=== PATIENT | female | born 1970 | race Caucasian/White ===

== ENCOUNTER → 2019-07-31 10:23 | Outpatient (BNVA) | payer BC, SELFPAY | PROVIDERS: Family Provider Registered Nurse; PCP Registered Nurse; Visit Provider Urology | DX: N39.0 Urinary tract infection, site not specified (principal); N39.46 Mixed incontinence | CPT/HCPCS: 81001 ==

== ENCOUNTER → 2019-08-25 14:53 | Outpatient (BNVA) | payer BC, SELFPAY | PROVIDERS: Family Provider Registered Nurse; PCP Registered Nurse; Referring Provider Registered Nurse; Visit Provider Podiatrist Foot & Ankle Surgery | DX: S92.001A Unspecified fracture of right calcaneus, initial encounter for closed fracture (principal); X58.XXXA Exposure to other specified factors, initial encounter | CPT/HCPCS: 73650 ==

== ENCOUNTER 2019-08-25 16:50 | Outpatient (CLI) | payer BC, SELFPAY | END 2019-08-25 16:51 | disposition home or self-care (01) | LOC: SPT 16:50 | PROVIDERS: Family Provider Registered Nurse; PCP Registered Nurse; Visit Provider Podiatrist Foot & Ankle Surgery | DX: S92.014D Nondisplaced fracture of body of right calcaneus, subsequent encounter for fracture with routine healing (principal); X58.XXXD Exposure to other specified factors, subsequent encounter; Z46.89 Encounter for fitting and adjustment of other specified devices | CPT/HCPCS: L4361 ==

== ENCOUNTER → 2019-08-26 14:26 | Outpatient (BNVA) | payer BC, SELFPAY | PROVIDERS: Family Provider Registered Nurse; PCP Registered Nurse; Visit Provider Nurse Practitioner Psychiatric/Mental Health | DX: F31.63 Bipolar disorder, current episode mixed, severe, without psychotic features (principal); F43.12 Post-traumatic stress disorder, chronic; F15.21 Other stimulant dependence, in remission | CPT/HCPCS: 99214 ==

== ENCOUNTER 2019-09-04 07:51 | Outpatient (CLI) | payer BC, SELFPAY ==
--- NOTE | 2019-09-04 08:10 | MR_ITS ---
WS: [id number] MRI RIGHT FOOT NONCONTRAST TECHNIQUE: Axial T1, axial PD, axial T2, axial STIR, sagittal T1, sagittal STIR, coronal PD, and chelsi nal T2 fat sat. CLINICAL INFORMATION: UNSPECIFIED INJURY OF RIGHT FOOT COMPARISON: None. FINDINGS: Normal medial and lateral malleolus. Ankle mortise is normal in appearance. Normal talar dome. Normal deltoid ligament. Normal ATF. The tissue edema dorsal lower leg extending along the lateral foot and ankle. Small amount of tenosynovitis along the peroneal tendons. Talar dome is normal. No evidence of avascular necrosis. Normal talocalcaneal articulation. Tiny Achi lles enthesophyte. Tiny plantar calcaneal spur. Small amount of edema along the adjacent plantar apon eurosis. Normal TMT joints. Distal Achilles tendon is normal in appearance.Normal visualized extensor and flex or compartment tendons. Metatarsals are normal in appearance. Normal TMT joints. MR/MR foot RT wo con* [id number] IMPRESSION: 1. Normal ankle mortise. Normal medial and lateral malleolus. 2. Soft tissue edema involving the dorsal lower leg soft tissues extending maurisio ng the lateral ankle and foot. 3. Small amount of tenosynovitis along the peroneal tendons. 4. Talus is normal in appearance. Normal talar dome. 5. Small Achilles insertion enthesophyte and plantar calcaneal spur. Small morelia unt of edema along the adjacent plantar aponeurosis. 6. Normal metatarsals and TMT joints. 7. Distal Achilles is normal in appearance.
== END 2019-09-04 07:52 | disposition home or self-care (01) ==
LOC: RADWPI 08:01
PROVIDERS: Family Provider Registered Nurse; PCP Registered Nurse; Visit Provider Podiatrist Foot & Ankle Surgery
DX: M65.871 Other synovitis and tenosynovitis, right ankle and foot (principal); M77.31 Calcaneal spur, right foot; R60.9 Edema, unspecified
CPT/HCPCS: 73718

== ENCOUNTER → 2019-09-30 08:24 | Outpatient (BNVA) | payer BC, SELFPAY | PROVIDERS: Family Provider Registered Nurse; PCP Registered Nurse; Visit Provider Nurse Practitioner Psychiatric/Mental Health | DX: F31.63 Bipolar disorder, current episode mixed, severe, without psychotic features (principal); F43.12 Post-traumatic stress disorder, chronic; F15.21 Other stimulant dependence, in remission | CPT/HCPCS: 99214 ==

== ENCOUNTER → 2019-10-28 08:34 | Outpatient (BNVA) | payer BC, SELFPAY | PROVIDERS: Family Provider Registered Nurse; PCP Registered Nurse; Visit Provider Nurse Practitioner Psychiatric/Mental Health | DX: F31.63 Bipolar disorder, current episode mixed, severe, without psychotic features (principal); F43.12 Post-traumatic stress disorder, chronic; F15.21 Other stimulant dependence, in remission | CPT/HCPCS: 99213 ==

== ENCOUNTER 2019-11-21 22:26 | Emergency (ER) | payer BC, SELFPAY ==
[2019-11-21] VITALS (11 sets, daily range): BP systolic 116–120; BP diastolic 61–68; PULSE 67–76; RESP 0–26; TEMP 36.2; O2SAT 95–98; BMI 29.8
--- NOTE | 2019-11-21 22:28 | XRR_ITS ---
PROCEDURE INFORMATION: Exam: XR Chest, 1 View Exam date and time: 11/21/2019 10:29 PM Age: 49 years old Clinical indication: Left-sided chest pain; Patient HX: Ex smoker; Additional info: Cp TECHNIQUE: Imaging protocol: XR of the chest Views: 1 view. COMPARISON: CR Chest 1 [place] [id number] 03/30/2019 8:34 AM FINDINGS: Lungs: The lungs are clear bilaterally. Pulmonary vasculature within normal limits. Pleural space: No visible pneumothorax or pleural effusion. Heart/Mediastinum: Cardiomediastinal silhouette contour within normal limits. Bones/joints: No emergent findings identified. XR/XR chest 1V portable [id number] IMPRESSION: 1. No radiographic findings of acute cardiopulmonary disease.
--- NOTE | 2019-11-21 22:28 | ECG_ITS ---
Measurements Intervals [place] Rate: 63 P: 56 VT: 135 QRS: 37 QRSD: 92 T: 63 QT: 390 QTc: 401 SINUS RHYTHM Compared to ECG 03/30/2019 08:14:32 No significant changes Electronically Signed On 11-22-2019 18:19:35 CDT by Faiza Blood M.D. [email or web address]
--- NOTE | 2019-11-21 22:44 | W.ED.CHESTPA ---
HPI - Chest Pain General: Chief Complaint: Chest Pain Stated Complaint: chest pressure/face tingling Time Seen by Provider: 11/21/19 22:36 Source: patient Mode of arrival: ambulatory Limitations: no limitations History of Present Illness: HPI narrative: 49-year-old female who states she has been working outside all day and started having chest pain 45 minutes ago. She states it is a pressure type pain in the center of her chest and rates it a 2 out of 10 currently. She denies any worsening or improving factors. She denies any vomiting or diarrhea. She denies any shortness of breath at this time. She has no history of heart disease. complaint: chest pain Onset (ago): hour(s) Prior episodes: No Onset: during rest Pain location: substernal Pain radiation: none Severity: moderate Quality: tightness Relieving factors: nothing Exacerbating factors: nothing Associated symptoms: Deny abdominal pain, dyspnea, fever(s), nausea or vomiting Review of Systems Const: Denies: fever(s), chills, body aches or change in appetite Eyes: Denies: blurry vision or eye discomfort ENMT: Denies: throat pain or dental pain Card: Reports: chest pain Resp: Denies: dyspnea GI: Denies: abdominal pain, nausea, vomiting or diarrhea : Denies: dysuria Musc: Denies: neck pain or back pain Skin/Breast: Denies: rash Neuro: Denies: headache(s) Psych: Denies: depression Rolly/Lymph: Denies: easy bruising All/Imm: Denies: urticaria PFSH ED PFSH: Medical History Bipolar I disorder, most recent episode mixed, severe without psychotic features Chronic post-traumatic stress disorder History of cervical cancer Other stimulant dependence, in remission methamphetamines, in sustained remission Recurrent UTI Status post hysteroscopy Urinary incontinence, mixed Surgical History H/O dilation and curettage History of salpingectomy S/P section S/P tonsillectomy Family History Family/Other Cancer Psychiatric illness Bipolar CAD (coronary artery disease) Diabetes Social History Smoking and tobacco status: never smoked Alcohol intake: never Marital status: Current occupational status: employed History of recent travel: No Physical Exam Const: COMMON NORMALS: no acute distress, patient oriented x3 and healthy appearing HENMT: COMMON NORMALS: normocephalic and atraumatic HEAD & SCALP: normocephalic and atraumatic Eye: COMMON NORMALS: Equal, round and reactive pupils present and EOMs intact bilaterally PUPIL: Yes Equal, round and reactive pupils present Neck/C-Spine: COMMON NORMALS: full ROM and supple Chest: COMMONS NORMALS: normal inspection of the chest and normal palpation of entire chest wall Resp: COMMON NORMALS: normal respiratory effort, No retractions, No use of accessory muscles and clear to auscultation bilaterally AUSCULTATION: clear to auscultation bilaterally Cardio: COMMON NORMALS: regular rate, regular rhythm and No murmurs present (Cardio) RATE: regular rate RHYTHM: regular rhythm GI: COMMON NORMALS: Normal to inspection, nondistended, normoactive bowel sounds present, Soft to palpation, non-tender and no masses PALPATION: Yes Soft to palpation Extremity: COMMON NORMALS: normal to inspection and full ROM Neuro: COMMON NORMALS: patient oriented x3, moves all extremities and no focal motor deficits Psych: COMMON NORMALS: mental status grossly normal, Normal thought process present and cooperative THOUGHT PROCESS: Normal thought process present Skin: COMMON NORMALS: no rashes or lesions noted and no wounds GENERAL SKIN EXAM: no rashes or lesions noted Course Vital Signs: Vital signs: Vital Signs Temperature 97.2 F L 11/21/19 22:45 Pulse Rate 71 11/21/19 23:40 Respiratory Rate 19 H 11/21/19 23:40 Blood Pressure 120/68 11/21/19 23:40 Pulse Oximetry 96 11/21/19 23:40 MDM - Chest Pain MDM Narrative: Medical decision making narrative: Patient presents here with chest pain that is atypical in nature. She has been pain-free here in initial and repeat troponins are normal. Patient has no signs of acute coronary syndrome or pulmonary embolism. Patient is stable for discharge is to follow-up with primary care doctor in 2 to 4 days and return if worsening. Lab Data: Labs: Lab Results 06/05/20 06/05/20 06/05/20 Range/Units 22:45 22:45 22:45 WBC 8.7 (4.0-10.0) 10^3/ uL RBC 3.92 L (4.1-5.3) 10^6/u L Hgb 12.2 (11.5-15.3) g/dL Hct 37.5 (37.0-47.0) % MCV 95.7 (81-99) fL MCH 31.1 (28.0-34.0) pg MCHC 32.5 (30.0-36.0) g/dL RDW 12.2 (12.1-15.1) % Plt Count 288 (130-400) 10^3/c mm MPV 9.1 (7.4-10.4) fL Neut % (Auto) 53.2 % Lymph % (Auto) 33.2 % [place] % (Auto) 10.2 % Eos % (Auto) 2.3 % Baso % (Auto) 0.8 % Neut # (Auto) 4.6 (1.8-7.7) 10^3/u L Lymph # (Auto) 2.9 (0.8-4.8) 10^3/u L [place] # (Auto) 0.9 (0.2-0.9) 10^3/u L Eos # (Auto) 0.2 (0.0-0.8) 10^3/u L Baso # (Auto) 0.1 (0.0-0.1) 10^3/u L Nucleated RBC % (a uto) 0 % Nucleated RBCs # 0.0 /100WBC Sodium 141 (136-145) mmol/L Potassium 3.9 (3.5-5.1) mmol/L Chloride 103 (98-107) mmol/L Carbon Dioxide 28 (22-29) mmol/L Anion Gap 13.9 (5-19) BUN 20 (6-20) mg/dL Creatinine 0.8 (0.5-0.9) mg/dL GFR Calculation 76.6 L (90-130) mL/min Glucose 94 (65-115) mg/dL Calculated Osmolal ity 288 (285-295) mOsm/k g Calcium 9.9 (8.5-10.5) mg/dL Total Bilirubin 0.2 (0.15-1.2) mg/dL AST 11 (0-32) U/L ALT 10 (0-33) U/L Alkaline Phosphata se 33 L (35-105) IU/L Troponin T Baselin e 6 (0-10) ng/L Troponin T 120 Min [place] (0-10) ng/L Total Protein 6.3 L (6.6-8.7) g/dL Albumin 3.9 (3.5-5.2) g/dL Globulin 2.4 (1.3-4.6) g/dL 11/22/19 Range/Units 00:42 WBC (4.0-10.0) 10^3/ uL RBC (4.1-5.3) 10^6/u L Hgb (11.5-15.3) g/dL Hct (37.0-47.0) % MCV (81-99) fL MCH (28.0-34.0) pg MCHC (30.0-36.0) g/dL RDW (12.1-15.1) % Plt Count (130-400) 10^3/c mm MPV (7.4-10.4) fL Neut % (Auto) % Lymph % (Auto) % [place] % (Auto) % Eos % (Auto) % Baso % (Auto) % Neut # (Auto) (1.8-7.7) 10^3/u L Lymph # (Auto) (0.8-4.8) 10^3/u L [place] # (Auto) (0.2-0.9) 10^3/u L Eos # (Auto) (0.0-0.8) 10^3/u L Baso # (Auto) (0.0-0.1) 10^3/u L Nucleated RBC % (a uto) % Nucleated RBCs # /100WBC Sodium (136-145) mmol/L Potassium (3.5-5.1) mmol/L Chloride (98-107) mmol/L Carbon Dioxide (22-29) mmol/L Anion Gap (5-19) BUN (6-20) mg/dL Creatinine (0.5-0.9) mg/dL GFR Calculation (90-130) mL/min Glucose (65-115) mg/dL Calculated Osmolal ity (285-295) mOsm/k g Calcium (8.5-10.5) mg/dL Total Bilirubin (0.15-1.2) mg/dL AST (0-32) U/L ALT (0-33) U/L Alkaline Phosphata se (35-105) IU/L Troponin T Baselin e (0-10) ng/L Troponin T 120 Min [place] 6.00 (0-10) ng/L Total Protein (6.6-8.7) g/dL Albumin (3.5-5.2) g/dL Globulin (1.3-4.6) g/dL Imaging Data^: CXR: Radiologist's impression: [place] [address] XRay Report Signed Patient: June Blackwell Unit #: [id number] : 1970 Age/Sex: 49 / F ADM Date: 11/21/19 Loc: ER Room/Bed: Attending Dr: Ordering Provider/Ordering MD: Roxann Cason MD Date of Service: 11/21/19 Procedure(s): XR chest 1V portable [id number] Accession Number(s): [id number] Report Number: [id number] PROCEDURE INFORMATION: Exam: XR Chest, 1 View Exam date and time: 11/21/2019 10:29 PM Age: 49 years old Clinical indication: Left-sided chest pain; Patient HX: Ex smoker; Additional info: Cp TECHNIQUE: Imaging protocol: XR of the chest Views: 1 view. COMPARISON: CR Chest 1 [place] [id number] 03/30/2019 8:34 AM FINDINGS: Lungs: The lungs are clear bilaterally. Pulmonary vasculature within normal limits. Pleural space: No visible pneumothorax or pleural effusion. Heart/Mediastinum: Cardiomediastinal silhouette contour within normal limits. Bones/joints: No emergent findings identified. XR/XR chest 1V portable [id number] IMPRESSION: 1. No radiographic findings of acute cardiopulmonary disease. EKG Data^: EKG 1: Attestation: I personally reviewed and interpreted this EKG as follows: EKG interpretation date: 11/21/19 EKG interpretation time: 22:51 Interpretation: nsr hr [address] or t wave abnormalities qrs 92 qtc 397 EKG 2: Attestation: I personally reviewed and interpreted this EKG as follows: EKG interpretation date: 11/22/19 EKG interpretation time: 01:25 Interpretation: Normal sinus rhythm heart rate [address] or T wave abnormalities QRS 99 QTc 413 Discharge Plan Discharge Patient Disposition: Home, Self-Care Clinical Impression: Chest pain Qualifiers: Chest pain type: other chest pain Qualified Code(s): R07.89 - Other chest pain Condition: Stable Prescriptions: No Action Zyrtec 10 mg capsule 10 mg PO DAILY RF: 0 levofloxacin 500 mg tablet 500 mg PO DAILY Qty: 14 RF: 2 diphenhydramine HCl [Benadryl] 25 mg capsule 75 mg PO .QHS PRNRF: 0 omeprazole 20 mg tablet,delayed release (DR/EC) 20 mg PO BID RF: 0 (DME) [place] Qty: 1 RF: 0 montelukast [Singulair] 10 mg tablet 10 mg PO .QHS RF: 0 aripiprazole [Abilify] 15 mg tablet 15 mg PO .bedtime Qty: 30 RF: 3 bupropion HCl [Wellbutrin XL] 150 mg tablet extended release 24 hr 150 mg PO QAM Qty: 30 RF: 4 bupropion HCl [Wellbutrin XL] 300 mg tablet extended release 24 hr 300 mg PO QAM Qty: 30 RF: 4 lamotrigine [Lamictal] 200 mg tablet 200 mg PO BID Qty: 60 RF: 4 trazodone 100 mg tablet 200 mg PO .QHS PRN (Reason: sleep) Qty: 60 RF: 4 Discharge Orders: Discharge Order (Routine); Ordered 11/22/19 Ordered By: Roxann Cason Referrals: Sonia Kraus FNP [Primary Care Provider] - 1-3 days Discharge Diet: Advance as tolerated Discharge Activity: Resume usual activity Patient Instructions: Chest Pain (ED) Coding Level of Care Code ED Change Management Coordinator for [facility] Fwd Exam Comprehensive
[2019-11-21 22:49] LABS: Basophils # 0.1 10^3/uL (0.0-0.1); Basophils % 0.8 %; Eosinophils # 0.2 10^3/uL (0.0-0.8); Eosinophils % 2.3 %; Hematocrit 37.5 % (37.0-47.0); Hemoglobin 12.2 g/dL (11.5-15.3); Lymphocytes # 2.9 10^3/uL (0.8-4.8); Lymphocytes % 33.2 %; Mean Corpuscular HGB Conc 32.5 g/dL (30.0-36.0); Mean Corpuscular Hemoglobin 31.1 pg (28.0-34.0); Mean Corpuscular Volume 95.7 fL (81-99); Mean Platelet Volume 9.1 fL (7.4-10.4); Monocytes # 0.9 10^3/uL (0.2-0.9); Monocytes % 10.2 %; Neutrophils # 4.6 10^3/uL (1.8-7.7); Neutrophils % 53.2 %; Nucleated Red Blood Cells % 0 %; Platelet Count 288 10^3/cmm (130-400); Red Blood Count 3.92 10^6/uL (4.1-5.3); Red Cell Distribution Width 12.2 % (12.1-15.1); White Blood Count 8.7 10^3/uL (4.0-10.0)
[2019-11-21] MEDS: aspirin 81 mg Chew Tablet 324 MG PO (22:59)
[2019-11-21] MEDS: morphine 4 mg/mL SDV 1 mL IVP (22:59)
[2019-11-21 23:12] LABS: Alanine Aminotransferase 10 U/L (0-33); Albumin Level 3.9 g/dL (3.5-5.2); Alkaline Phosphatase 33 IU/L (35-105); Anion Gap 13.9 (5-19); Aspartate Amino Transferase 11 U/L (0-32); Blood Urea Nitrogen 20 mg/dL (6-20); Calcium 9.9 mg/dL (8.5-10.5); Carbon Dioxide 28 mmol/L (22-29); Chloride 103 mmol/L (98-107); Globulin 2.4 g/dL (1.3-4.6); Glomerular Filtration Rate 76.6 mL/min (90-130); Glucose 94 mg/dL (65-115); Osmolality Calculated 288 mOsm/kg (285-295); Potassium 3.9 mmol/L (3.5-5.1); Sodium 141 mmol/L (136-145); Total Bilirubin 0.2 mg/dL (0.15-1.2); Total Protein 6.3 g/dL (6.6-8.7)
[2019-11-21 23:14] LABS: Troponin(5th) Baseline 6 ng/L (0-10)
[2019-11-22] VITALS (20 sets, daily range): BP systolic 109–133; BP diastolic 56–67; PULSE 68–84; RESP 13–22; O2SAT 92–96
[2019-11-22 01:02] LABS: Troponin 5 2HR Delta 0 ABS# (0-10)
== END 2019-11-22 01:41 | disposition home or self-care (01) ==
PROVIDERS: Emergency Provider Emergency Medicine; PCP Registered Nurse
DX: R07.89 Other chest pain (principal); Z85.41 Personal history of malignant neoplasm of cervix uteri
CPT/HCPCS: 12345; 71045; 80053; 84484; 85025; 93005; 96374; 99283; 99284; J2270

== ENCOUNTER → 2020-01-05 07:41 | Outpatient (BNVA) | payer BC, SELFPAY | PROVIDERS: PCP Registered Nurse; Visit Provider Nurse Practitioner Psychiatric/Mental Health | DX: F31.63 Bipolar disorder, current episode mixed, severe, without psychotic features (principal); F43.12 Post-traumatic stress disorder, chronic; F15.21 Other stimulant dependence, in remission; F50.81 Binge eating disorder; F90.2 Attention-deficit hyperactivity disorder, combined type | CPT/HCPCS: 99213 ==

== ENCOUNTER 2020-02-09 08:56 | Outpatient (CLI) | payer BC, SELFPAY ==
--- NOTE | 2020-02-09 09:03 | MM_ITS ---
WS: [id number] DIAGNOSTIC BILATERAL DIGITAL MAMMOGRAM WITH CAD BILATERAL BREAST ULTRASOUND COMPLETE HISTORY: PAIN OF BOTH BREASTS COMPARISON: 08/20/2018 TECHNIQUE: Bilateral craniocaudad, mediolateral oblique, and mediolateral views are submitted. Comput er aided detection utilized. Breast composition: The breasts are heterogeneously dense, which may obscure small masses. Stable par enchymal pattern. No masses or distortion. No increased trabeculation or skin thickening. No nipple r etraction. Bilateral breast ultrasound, complete. Bilateral breast ultrasound is positive for multiple benign-appearing hypoechoic masses and cysts. T here is no shadowing or dominant suspicious mass. There are mildly prominent ducts bilaterally. There is no focal area that corresponds to focal pain or discomfort. No distortion or shadowing. These fin dings are most consistent with fibrocystic breast disease. MM/[place] [id number] IMPRESSION: BI-RADS: 2-Benign FOLLOW UP: 1 Year Follow-up No mammographic or ultrasound abnormality is identified. No additional follow-u p is necessary unless the patient or care provider can localize a discrete palp able nodule or mass.
== END 2020-02-09 08:57 | disposition home or self-care (01) ==
LOC: RADSHAW 08:59
PROVIDERS: PCP Registered Nurse; Visit Provider Registered Nurse
DX: N64.4 Mastodynia (principal)
CPT/HCPCS: 76641; 77066

== ENCOUNTER → 2020-04-03 15:12 | Outpatient (BNVA) | payer BC, SELFPAY | PROVIDERS: PCP Registered Nurse; Visit Provider Nurse Practitioner Family | DX: N39.0 Urinary tract infection, site not specified (principal); Z11.3 Encounter for screening for infections with a predominantly sexual mode of transmission | CPT/HCPCS: 87491; 87591; 87661 ==

== ENCOUNTER → 2020-04-28 07:35 | Outpatient (BNVA) | payer BC, SELFPAY | PROVIDERS: PCP Registered Nurse; Visit Provider Nurse Practitioner Psychiatric/Mental Health | DX: F31.63 Bipolar disorder, current episode mixed, severe, without psychotic features (principal); F43.12 Post-traumatic stress disorder, chronic; F15.21 Other stimulant dependence, in remission; F50.81 Binge eating disorder; Z79.899 Other long term (current) drug therapy | CPT/HCPCS: 99214 ==

== ENCOUNTER → 2020-08-05 07:39 | Outpatient (BNVA) | payer BC, SELFPAY | PROVIDERS: PCP Registered Nurse; Visit Provider Nurse Practitioner Psychiatric/Mental Health | DX: F31.63 Bipolar disorder, current episode mixed, severe, without psychotic features (principal); F43.12 Post-traumatic stress disorder, chronic; F15.21 Other stimulant dependence, in remission; F50.81 Binge eating disorder | CPT/HCPCS: 99214 ==

== ENCOUNTER → 2020-09-08 07:34 | Outpatient (BNVA) | payer BC, SELFPAY | PROVIDERS: PCP Registered Nurse; Visit Provider Nurse Practitioner Psychiatric/Mental Health | DX: F31.63 Bipolar disorder, current episode mixed, severe, without psychotic features (principal); F43.12 Post-traumatic stress disorder, chronic; F15.21 Other stimulant dependence, in remission; F50.81 Binge eating disorder; Z79.899 Other long term (current) drug therapy | CPT/HCPCS: 99214 ==

== ENCOUNTER → 2020-09-10 08:39 | Outpatient (BNVA) | payer BC, SELFPAY | PROVIDERS: PCP Registered Nurse; Visit Provider Nurse Practitioner Psychiatric/Mental Health | DX: Z79.899 Other long term (current) drug therapy (principal) | CPT/HCPCS: 80053; 80061; 83036; 84443 ==

== ENCOUNTER → 2020-09-18 10:29 | Outpatient (BNVA) | payer BC, SELFPAY | PROVIDERS: PCP Registered Nurse; Visit Provider Nurse Practitioner Family | DX: N39.0 Urinary tract infection, site not specified (principal); B37.3 Candidiasis of vulva and vagina | CPT/HCPCS: 81000; 87086 ==

== ENCOUNTER → 2020-10-01 08:15 | Outpatient (BNVA) | payer BC, SELFPAY | PROVIDERS: PCP Registered Nurse; Visit Provider Nurse Practitioner Psychiatric/Mental Health | DX: F31.63 Bipolar disorder, current episode mixed, severe, without psychotic features (principal); F43.12 Post-traumatic stress disorder, chronic; F15.21 Other stimulant dependence, in remission; F50.81 Binge eating disorder; Z79.899 Other long term (current) drug therapy | CPT/HCPCS: 99214 ==

== ENCOUNTER → 2020-10-18 11:20 | Outpatient (BNVA) | payer BC, SELFPAY | PROVIDERS: PCP Registered Nurse; Visit Provider Nurse Practitioner Family | DX: J06.9 Acute upper respiratory infection, unspecified (principal); Z20.822 Contact with and (suspected) exposure to COVID-19 | CPT/HCPCS: 87071; 87426; 87880 ==

== ENCOUNTER → 2021-01-25 11:25 | Outpatient (BNVA) | payer BC, SELFPAY | PROVIDERS: PCP Registered Nurse; Visit Provider Registered Nurse Neonatal Intensive Care | DX: N39.0 Urinary tract infection, site not specified (principal) | CPT/HCPCS: 81000 ==

== ENCOUNTER 2021-02-02 19:38 | Emergency (ER) | payer SELFPAY ==
[2021-02-02 19:58] VITALS: BP 124/74; PULSE 71; RESP 16; TEMP 36.7; O2SAT 97; BMI 32.3
--- NOTE | 2021-02-02 22:17 | ED_ITS ---
HPI - Nausea/Vomiting/Diarrhea General: Chief complaint: Nausea/Vomiting/Diarrhea Stated complaint: Vomiting Nausea\PT thinks food Poison Time Seen by Provider: 02/02/21 22:13 History of Present Illness: HPI Narrative: 50-year-old female comes in today with complaints of nausea and vomiting and diarrhea starting this afternoon after eating [employer]. Patient reports that at about 11:00 she had eaten at [employer] fried chicken by 6:00 this evening she started having nausea and vomiting followed by diarrhea. Patient reports vomiting had ceased prior to arrival to the ER but she continues to have diarrhea. Patient appears mildly unwell and not toxic. Patient does report some mild cramping in the abdomen. Associated nausea: Yes Associated symtoms: Reports nausea Review of Systems General: Reports: 10 or more systems reviewed and unremarkable except in HPI and below GI: Reports: nausea, vomiting and diarrhea PFS ED PFSH: Medical History (Updated 02/02/21 @ 23:12 by NEDA Diana) Binge eating disorder Bipolar I disorder, most recent episode mixed, severe without psychotic features Chronic post-traumatic stress disorder History of cervical cancer Other stimulant dependence, in remission methamphetamines, in sustained remission Recurrent UTI Status post hysteroscopy Urinary incontinence, mixed Surgical History H/O dilation and curettage History of salpingectomy S/P section S/P tonsillectomy Family History Family/Other Cancer Psychiatric illness Bipolar CAD (coronary artery disease) Diabetes Social History Smoking and tobacco status: former smoker Alcohol intake: never Marital status: Current occupational status: employed History of recent travel: No Physical Exam Const: COMMON NORMALS: no acute distress and patient oriented x3 GENERAL APPEARANCE: cooperative HENMT: COMMON NORMALS: normocephalic and Normal external nose present HEAD & SCALP: normal to inspection and normocephalic NOSE: Normal external nose present MOUTH: Normal oral and palatal mucosa present Eye: GENERAL EYE: appearance normal, both eyes and all related structures Neck/C-Spine: COMMON NORMALS: full ROM Lymph: LYMPHATIC: no lymphadenopathy noted Chest: COMMONS NORMALS: normal inspection of the chest Resp: COMMON NORMALS: normal respiratory effort EFFORT & INSPECTION: Yes able to speak in complete sentences Cardio: COMMON NORMALS: regular rate and regular rhythm RATE: regular rate RHYTHM: regular rhythm GI: COMMON NORMALS: non-tender AUSCULTATION: Yes Hyperactive bowel sounds present : COMMON NORMALS: Yes no CVA tenderness BLADDER/KIDNEY EXAM: Yes no CVA tenderness Back/Pelvis: COMMON NORMALS: no CVA tenderness and thoracic and lumbar spine normal to inspection Extremity: COMMON NORMALS: normal to inspection Neuro: COMMON NORMALS: patient oriented x3 and moves all extremities Psych: COMMON NORMALS: mental status grossly normal and cooperative Skin: COMMON NORMALS: no rashes or lesions noted GENERAL SKIN EXAM: no rashes or lesions noted Course Vital Signs: Vital signs: Vital Signs Temperature 98.1 F 02/02/21 19:58 Pulse Rate 71 02/02/21 19:58 Respiratory Rate 16 02/02/21 19:58 Blood Pressure 124/74 02/02/21 19:58 Pulse Oximetry 97 02/02/21 19:58 MDM - Nausea/Vomiting/Diarrhea MDM Narrative: Medical decision making narrative: 50-year-old female comes in today with complaints of nausea vomiting and diarrhea starting this evening after eating [place] fried chicken. On exam abdomen soft nontender. Bowel sounds are hyperactive. Vital signs are normal. Differential diagnosis includes viral syndrome, gastroenteritis, food poisoning. Laboratory values were unremarkable. Patient was given a dose of Zofran and 1 L of IV fluids for symptoms. Patient had improvement in symptoms. Recommended light diet increase as tolerated. Off work tomorrow. Follow-up as needed. Return to the ER for worsening symptoms. Patient reported understanding of care plan and need for follow-up or return to the ER. Lab Data: Labs: Lab Results 02/02/21 02/02/21 Range/Units 22:40 22:40 WBC 7.0 (4.0-10.0) 10^3/ uL RBC 4.13 (4.1-5.3) 10^6/u L Hgb 13.0 (11.5-15.3) g/dL Hct 40.2 (37.0-47.0) % MCV 97.3 (81-99) fl MCH 31.5 (28.0-34.0) pg MCHC 32.3 (30.0-36.0) g/dL RDW 12.2 (12.1-15.1) % Plt Count 340 (130-400) 10^3/c mm MPV 8.9 (7.4-10.4) fL Neut % (Auto) 63.1 % Lymph % (Auto) 27.9 % [place] % (Auto) 7.2 % Eos % (Auto) 0.9 % Baso % (Auto) 0.6 % Neut # (Auto) 4.39 (1.8-7.7) 10^3/u L Lymph # (Auto) 1.9 (0.8-4.8) 10^3/u L [place] # (Auto) 0.5 (0.2-0.9) 10^3/u L Eos # (Auto) 0.1 (0.0-0.8) 10^3/u L Baso # (Auto) 0.0 (0.0-0.1) 10^3/u L Nucleated RBC % (a uto) 0 % Nucleated RBCs # 0.0 /100WBC Sodium 137 (136-145) mmol/L Potassium 3.7 (3.5-5.1) mmol/L Chloride 98 (98-107) mmol/L Carbon Dioxide 27 (22-29) mmol/L Anion Gap 15.7 (5-19) BUN 17 (6-20) mg/dL Creatinine 0.8 (0.5-0.9) mg/dL GFR Calculation 76.2 L (90-130) mL/min Glucose 95 (65-115) mg/dL Calculated Osmolal ity 285 (285-295) mOsm/k g Calcium 8.7 (8.5-10.5) mg/dL Total Bilirubin 0.2 (0.15-1.2) mg/dL AST 8 (0-32) U/L ALT 9 (0-33) U/L Alkaline Phosphata se 57 (35-105) IU/L Total Protein 7.1 (6.6-8.7) g/dL Albumin 3.9 (3.5-5.2) g/dL Globulin 3.2 (1.3-4.6) g/dL Lipase 19 (13-60) U/L Discharge Plan Discharge Patient Disposition: Home Clinical Impression: Food poisoning Condition: Stable Prescriptions: New ondansetron 4 mg tablet,disintegrating 4 mg PO Q8H PRN (Reason: nausea and vomiting) Qty: 7 RF: 0 No Action Zyrtec 10 mg capsule 10 mg PO DAILY RF: 0 lamotrigine [Lamictal] 200 mg tablet 200 mg PO BID Qty: 60 RF: 6 trazodone 100 mg tablet 200 mg PO .QHS PRN (Reason: sleep) Qty: 60 RF: 6 bupropion HCl [Wellbutrin XL] 150 mg tablet extended release 24 hr 150 mg PO QAM Qty: 30 RF: 6 bupropion HCl [Wellbutrin XL] 300 mg tablet extended release 24 hr 300 mg PO QAM Qty: 30 RF: 6 aripiprazole [Abilify] 15 mg tablet 15 mg PO .bedtime Qty: 30 RF: 6 diphenhydramine HCl [Benadryl] 25 mg capsule 75 mg PO .QHS PRNRF: 0 omeprazole 20 mg tablet,delayed release (DR/EC) 20 mg PO BID RF: 0 potassium chloride 10 mEq tablet extended release 10 meq PO DAILY RF: 0 furosemide [Lasix] 20 mg tablet 20 mg PO DAILY RF: 0 nitrofurantoin monohyd/m-cryst [Macrobid] 100 mg capsule 100 mg PO Q12H 5 Days Qty: 10 RF: 0 Discharge Orders: Discharge ED (Routine); Ordered 02/02/21 Ordered By: Ryan Goodson Discharge Diet: Usual diet Discharge Activity: Increase activity as tolerated Patient Instructions: Gastroenteritis (ED), Opioid Safety Activity Restrictions/Additional Instructions: Drink plenty of fluids. Use a ondansetron as needed for nausea. You may use [id number] Imodium for diarrhea. Most food poisoning incidents will resolve within 24 to 48 hours. Monitor for worsening symptoms such as high fever, blood in vomit or stool. If you notice any of these symptoms return to the ER for further evaluation and treatment. Follow-up with primary care as needed. Stand Alone Forms: Work/School Release Coding Level of Care Code ED Government Relations Analyst for [facility] Fwdenita Exam Comprehensive
[2021-02-02 22:51] LABS: Basophils % 0.6 %; Eosinophils # 0.1 10^3/uL (0.0-0.8); Eosinophils % 0.9 %; Hematocrit 40.2 % (37.0-47.0); Lymphocytes # 1.9 10^3/uL (0.8-4.8); Lymphocytes % 27.9 %; Mean Corpuscular HGB Conc 32.3 g/dL (30.0-36.0); Mean Corpuscular Hemoglobin 31.5 pg (28.0-34.0); Mean Corpuscular Volume 97.3 fl (81-99); Mean Platelet Volume 8.9 fL (7.4-10.4); Monocytes # 0.5 10^3/uL (0.2-0.9); Monocytes % 7.2 %; Neutrophils # 4.39 10^3/uL (1.8-7.7); Neutrophils % 63.1 %; Nucleated Red Blood Cells % 0 %; Platelet Count 340 10^3/cmm (130-400); Red Blood Count 4.13 10^6/uL (4.1-5.3); Red Cell Distribution Width 12.2 % (12.1-15.1)
[2021-02-02] MEDS: ondansetron 2 mg/ML SDV 2 mL 4 MG IVP (22:55)
[2021-02-02] MEDS: sodium chloride 0.9% 1,000 ML 999 ML IV (22:55)
[2021-02-02 23:08] LABS: Alanine Aminotransferase 9 U/L (0-33); Albumin Level 3.9 g/dL (3.5-5.2); Alkaline Phosphatase 57 IU/L (35-105); Anion Gap 15.7 (5-19); Aspartate Amino Transferase 8 U/L (0-32); Blood Urea Nitrogen 17 mg/dL (6-20); Calcium 8.7 mg/dL (8.5-10.5); Carbon Dioxide 27 mmol/L (22-29); Chloride 98 mmol/L (98-107); Globulin 3.2 g/dL (1.3-4.6); Glomerular Filtration Rate 76.2 mL/min (90-130); Glucose 95 mg/dL (65-115); Lipase 19 U/L (13-60); Osmolality Calculated 285 mOsm/kg (285-295); Potassium 3.7 mmol/L (3.5-5.1); Sodium 137 mmol/L (136-145); Total Bilirubin 0.2 mg/dL (0.15-1.2); Total Protein 7.1 g/dL (6.6-8.7)
[2021-02-02 23:29] VITALS: BP 105/62; PULSE 72; RESP 16; O2SAT 98
== END 2021-02-02 23:31 | disposition home or self-care (01) ==
PROVIDERS: Emergency Medicine; Emergency Provider Nurse Practitioner Family
DX: A05.9 Bacterial foodborne intoxication, unspecified (principal); Z85.41 Personal history of malignant neoplasm of cervix uteri; Z87.891 Personal history of nicotine dependence
CPT/HCPCS: 80053; 83690; 85025; 96361; 96374; 99283; J2405; J7030

== ENCOUNTER → 2021-05-04 10:28 | Outpatient (BNVA) | payer BC, SELFPAY | PROVIDERS: PCP Registered Nurse; Visit Provider Registered Nurse Neonatal Intensive Care | DX: N39.0 Urinary tract infection, site not specified (principal) | CPT/HCPCS: 81000 ==

== ENCOUNTER → 2021-05-26 15:34 | Outpatient (BNVA) | payer BC, SELFPAY | PROVIDERS: PCP Registered Nurse; Visit Provider Registered Nurse Neonatal Intensive Care | DX: N39.0 Urinary tract infection, site not specified (principal); Z20.2 Contact with and (suspected) exposure to infections with a predominantly sexual mode of transmission | CPT/HCPCS: 81000; 87491; 87591; 87661 ==

== ENCOUNTER → 2021-06-20 13:18 | Outpatient (BNVA) | payer SELFPAY | PROVIDERS: PCP Registered Nurse; Visit Provider Nurse Practitioner Family | DX: Z20.822 Contact with and (suspected) exposure to COVID-19 (principal) | CPT/HCPCS: 87400; 87635 ==

== ENCOUNTER → 2021-07-18 17:52 | Outpatient (BNVA) | payer OTHER, SELFPAY | PROVIDERS: PCP Registered Nurse; Visit Provider Nurse Practitioner | DX: R39.9 Unspecified symptoms and signs involving the genitourinary system (principal) | CPT/HCPCS: 81000 ==

== ENCOUNTER → 2021-08-18 13:07 | Outpatient (BNVA) | payer OTHER, SELFPAY | PROVIDERS: PCP Family Medicine; Visit Provider Family Medicine | DX: M25.571 Pain in right ankle and joints of right foot (principal) | CPT/HCPCS: 73590; 73600 ==

== ENCOUNTER → 2021-09-01 12:36 | Outpatient (BNVA) | payer OTHER, SELFPAY | PROVIDERS: PCP Family Medicine; Visit Provider Nurse Practitioner Psychiatric/Mental Health | DX: Z79.899 Other long term (current) drug therapy (principal) | CPT/HCPCS: 80053; 80061; 83036 ==

== ENCOUNTER 2021-09-02 18:36 | Outpatient (CLI) | payer OTHER, SELFPAY ==
--- NOTE | 2021-09-02 | XR_ITS ---
WS: [id number] LEFT SHOULDER: 2 VIEW(S) TECHNIQUE: Internal and external rotation. HISTORY: left shoulder pain COMPARISON: None available. No fracture or dislocation or soft tissue abnormality. Mild narrowing and hypertrophic osteophytes involving the AC joint. No displacement. No osseous destr uction. Visualized LEFT upper lung is clear. XR/XR shoulder LT min 2V* [id number] IMPRESSION: Mild AC joint arthritis.
== END 2021-09-02 18:37 | disposition home or self-care (01) ==
PROVIDERS: PCP Family Medicine; Visit Provider Registered Nurse
DX: M19.012 Primary osteoarthritis, left shoulder (principal)
CPT/HCPCS: 73030

== ENCOUNTER 2021-11-30 15:25 | Emergency (ER) | payer SELFPAY ==
[2021-11-30 15:42] VITALS: BP 108/73; PULSE 79; RESP 16; TEMP 36.6; O2SAT 98; BMI 36.3
[2021-11-30 16:53] LABS: Basophils # 0.1 10^3/uL (0.0-0.1); Eosinophils # 0.2 10^3/uL (0.0-0.8); Eosinophils % 2.3 %; Hematocrit 38.9 % (37.0-47.0); Hemoglobin 13.3 g/dL (11.5-15.3); Lymphocytes # 2.5 10^3/uL (0.8-4.8); Lymphocytes % 29.4 %; Mean Corpuscular HGB Conc 34.2 g/dL (30.0-36.0); Mean Corpuscular Hemoglobin 30.7 pg (28.0-34.0); Mean Corpuscular Volume 89.8 fl (81-99); Mean Platelet Volume 9.2 fL (7.4-10.4); Monocytes # 0.7 10^3/uL (0.2-0.9); Monocytes % 8.2 %; Neutrophils # 4.92 10^3/uL (1.8-7.7); Neutrophils % 58.9 %; Nucleated Red Blood Cells % 0 %; Platelet Count 388 10^3/cmm (130-400); Red Blood Count 4.33 10^6/uL (4.1-5.3); Red Cell Distribution Width 12.7 % (12.1-15.1); White Blood Count 8.3 10^3/uL (4.0-10.0)
[2021-11-30 17:20] LABS: Alanine Aminotransferase 9 U/L (0-33); Albumin Level 4.1 g/dL (3.5-5.2); Alkaline Phosphatase 63 IU/L (35-105); Anion Gap 16.6 (5-19); Aspartate Amino Transferase 10 U/L (0-32); Blood Urea Nitrogen 21 mg/dL (6-20); Calcium 8.9 mg/dL (8.5-10.5); Carbon Dioxide 22 mmol/L (22-29); Chloride 101 mmol/L (98-107); Globulin 2.9 g/dL (1.3-4.6); Glomerular Filtration Rate 66.3 mL/min (90-130); Glucose 97 mg/dL (65-115); Lipase 19 U/L (13-60); Osmolality Calculated 285 mOsm/kg (285-295); Potassium 3.6 mmol/L (3.5-5.1); Sodium 136 mmol/L (136-145); Total Bilirubin 0.3 mg/dL (0.15-1.2)
--- NOTE | 2021-11-30 18:48 | ED_ITS ---
HPI - Abdominal Pain General: Chief Complaint: Abdominal Pain Stated Complaint: Stomach pain Time Seen by Provider: 11/30/21 18:34 History of Present Illness: 51-year-old female comes in today with complaints of abdominal discomfort with drinking and eating. Patient has a history of GERD. Patient does take omeprazole routinely. Patient denies any vomiting diarrhea or fever. Patient appears in mild to moderate pain. Patient appears no acute distress. Patient appears nontoxic. Patient has a history of binge eating disorder, PTSD, bipolar. Review of patient's medication she does take caffeine tablets routinely. Associated Symptoms: Reports nausea; Denies constipation, diarrhea, fever(s) and vomiting Review of Systems General: Reports: 10 or more systems reviewed and unremarkable except in HPI and below Const: Denies: fever(s) Card: Denies: chest pain Resp: Denies: dyspnea GI: Reports: abdominal pain and nausea; Denies: vomiting, diarrhea or constipation : Denies: difficulty voiding Skin/Breast: Denies: rash PFS ED PFSH: Medical History (Updated 11/30/21 @ 18:55 by NEDA Diana) Binge eating disorder Bipolar I disorder, most recent episode mixed, severe without psychotic features Chronic post-traumatic stress disorder History of cervical cancer Other stimulant dependence, in remission methamphetamines, in sustained remission Recurrent UTI Status post hysteroscopy Urinary incontinence, mixed Surgical History H/O dilation and curettage History of salpingectomy S/P section S/P tonsillectomy Family History Family/Other Cancer Psychiatric illness Bipolar CAD (coronary artery disease) Diabetes Social History Smoking and tobacco status: never smoked Alcohol intake: never Marital status: Current occupational status: employed History of recent travel: No Physical Exam Const: COMMON NORMALS: alert HENMT: COMMON NORMALS: normocephalic HEAD & SCALP: normocephalic Neck/C-Spine: COMMON NORMALS: full ROM Resp: COMMON NORMALS: normal respiratory effort GI: COMMON NORMALS: Soft to palpation AUSCULTATION: Yes normoactive bowel sounds PALPATION: Yes Soft to palpation and Yes Tenderness to palpation present (GI) (Midepigastric) Back/Pelvis: COMMON NORMALS: thoracic and lumbar spine normal to inspection Extremity: COMMON NORMALS: normal to inspection Neuro: SENSORIUM/ORIENTATION: Yes alert Skin: COMMON NORMALS: no rashes or lesions noted GENERAL SKIN EXAM: no rashes or lesions noted Course Vital Signs: Vital signs: Vital Signs Temperature 97.9 F 11/30/21 15:42 Pulse Rate 79 11/30/21 15:42 Respiratory Rate 16 11/30/21 15:42 Blood Pressure 108/73 11/30/21 15:42 Pulse Oximetry 98 11/30/21 15:42 MDM - Abdominal Pain Medical Decision Making 51-year-old female comes in today with epigastric abdominal pain. On exam skin is warm and dry, vital signs are normal, abdomen soft with some midepigastric tenderness. Differential diagnosis includes GERD, peptic ulcer disease, gal lbladder disease, pancreatitis. Laboratory values were unremarkable. Recommend follow-up with surgeon for EGD for further evaluation. No signs of red flags for acute abdominal surgery or need for acute imaging. circulation manager was consulted for follow-up appointment for EGD. Patient was changed from omeprazole to pantoprazole for improved symptom relief. Patient was given Zofran and 6 tablets of hydrocodone to help with pain and nausea. Patient reported understanding agreed to plan. Lab Data : 11/30/21 16:45 11/30/21 16:45 Labs/Radiology: Laboratory Results WBC 8.3 10^3/uL (4.0-10.0) 11/30/21 16:45 RBC 4.33 10^6/uL (4.1-5.3) 11/30/21 16:45 Hgb 13.3 g/dL (11.5-15.3) 11/30/21 16:45 Hct 38.9 % (37.0-47.0) 11/30/21 16:45 MCV 89.8 fl (81-99) 11/30/21 16:45 MCH 30.7 pg (28.0-34.0) 11/30/21 16:45 MCHC 34.2 g/dL (30.0-36.0) 11/30/21 16:45 RDW 12.7 % (12.1-15.1) 11/30/21 16:45 Plt Count 388 10^3/cmm (130-400) 11/30/21 16:45 MPV 9.2 fL (7.4-10.4) 11/30/21 16:45 Neut % (Auto) 58.9 % 11/30/21 16:45 Lymph % (Auto) 29.4 % 11/30/21 16:45 [place] % (Auto) 8.2 % 11/30/21 16:45 Eos % (Auto) 2.3 % 11/30/21 16:45 Baso % (Auto) 1.0 % 11/30/21 16:45 Neut # (Auto) 4.92 10^3/uL (1.8-7.7) 11/30/21 16:45 Lymph # (Auto) 2.5 10^3/uL (0.8-4.8) 11/30/21 16:45 [place] # (Auto) 0.7 10^3/uL (0.2-0.9) 11/30/21 16:45 Eos # (Auto) 0.2 10^3/uL (0.0-0.8) 11/30/21 16:45 Baso # (Auto) 0.1 10^3/uL (0.0-0.1) 11/30/21 16:45 Nucleated RBC % (auto) 0 % 11/30/21 16:45 Nucleated RBCs # 0.0 /100WBC 11/30/21 16:45 Sodium 136 mmol/L (136-145) 11/30/21 16:45 Potassium 3.6 mmol/L (3.5-5.1) 11/30/21 16:45 Chloride 101 mmol/L (98-107) 11/30/21 16:45 Carbon Dioxide 22 mmol/L (22-29) 11/30/21 16:45 Anion Gap 16.6 (5-19) 11/30/21 16:45 BUN 21 mg/dL (6-20) H 11/30/21 16:45 Creatinine 0.9 mg/dL (0.5-0.9) 11/30/21 16:45 GFR Calculation 66.3 mL/min (90-130) L 11/30/21 16:45 Glucose 97 mg/dL (65-115) 11/30/21 16:45 Calculated Osmolality 285 mOsm/kg (285-295) 11/30/21 16:45 Calcium 8.9 mg/dL (8.5-10.5) 11/30/21 16:45 Total Bilirubin 0.3 mg/dL (0.15-1.2) 11/30/21 16:45 AST 10 U/L (0-32) 11/30/21 16:45 ALT 9 U/L (0-33) 11/30/21 16:45 Alkaline Phosphatase 63 IU/L (35-105) 11/30/21 16:45 Total Protein 7.0 g/dL (6.6-8.7) 11/30/21 16:45 Albumin 4.1 g/dL (3.5-5.2) 11/30/21 16:45 Globulin 2.9 g/dL (1.3-4.6) 11/30/21 16:45 Lipase 19 U/L (13-60) 11/30/21 16:45 Urine Color Yellow (Yellow) 11/30/21 18:35 Urine Appearance Clear (CLEAR) 11/30/21 18:35 Urine pH 5 (5-7) 11/30/21 18:35 Ur Specific [place] 1.020 (1.005-1.030) 11/30/21 18:35 Urine Protein Neg (Negative) 11/30/21 18:35 Urine Glucose (UA) Norm (Normal) 11/30/21 18:35 Urine Ketones Negative (Negative) 11/30/21 18:35 Urine Blood 2+ (Negative) H 11/30/21 18:35 Urine Nitrate Negative (Negative) 11/30/21 18:35 Urine Bilirubin Neg (Negative) 11/30/21 18:35 Urine Urobilinogen Norm mg/dL (Negative) 11/30/21 18:35 Ur Leukocyte Esterase Negative (Negative) 11/30/21 18:35 Urine RBC 0-4 /hpf (0-2) H 11/30/21 18:35 Urine WBC 0-4 /hpf (0-5) H 11/30/21 18:35 Ur Squamous Epith Cells 5-10 /hpf (0-5) H 11/30/21 18:35 Amorphous Sediment Not Reportable 11/30/21 18:35 Urine Bacteria 1+ /hpf (NONE) H 11/30/21 18:35 Discharge Plan Discharge Patient Disposition: Home Clinical Impression: Abdominal pain Qualifiers: Abdominal location: epigastric Qualified Code(s): R10.13 - Epigastric pain Condition: Stable Prescriptions: New pantoprazole 40 mg tablet,delayed release (DR/EC) 40 mg PO DAILY Qty: 30 0RF Rx Instructions: take 30 minutes to first meal of day ondansetron 4 mg tablet,disintegrating 4 mg PO Q8H PRN (Reason: nausea and vomiting) Qty: 10 0RF hydrocodone-acetaminophen 5-325 mg tablet 1 tab PO Q8H PRN (Reason: pain (scale score 7-10)) Qty: 6 0RF No Action Zyrtec 10 mg capsule 10 mg PO DAILY 0RF prednisone 10 mg tablet 10 mg PO DAILY 12 Days Qty: 42 0RF Rx Instructions: 12 day taper Instructions on how to take was given to patient in clinic. diphenhydramine HCl [Benadryl] 25 mg capsule 75 mg PO .QHS PRN0RF omeprazole 20 mg tablet,delayed release (DR/EC) 20 mg PO BID 0RF potassium chloride 10 mEq tablet extended release 10 meq PO DAILY 0RF furosemide [Lasix] 20 mg tablet 20 mg PO DAILY 0RF fluconazole [Diflucan] 150 mg tablet 150 mg PO Q3D Qty: 2 0RF bupropion HCl [Wellbutrin XL] 150 mg tablet extended release 24 hr 150 mg PO QAM Qty: 30 6RF Rx Instructions: Take one tablet every morning aripiprazole [Abilify] 15 mg tablet 15 mg PO .bedtime Qty: 30 6RF Rx Instructions: Take one tablet at bedtime bupropion HCl [Wellbutrin XL] 300 mg tablet extended release 24 hr 300 mg PO QAM Qty: 30 6RF Rx Instructions: Take one tablet every morning lamotrigine [Lamictal] 200 mg tablet 200 mg PO BID Qty: 60 6RF Rx Instructions: Take one tablet twice per day trazodone 100 mg tablet 200 mg PO .QHS PRN (Reason: sleep) Qty: 60 6RF Rx Instructions: Take two tablets at bedtime ondansetron 4 mg tablet,disintegrating 4 mg PO Q8H PRN (Reason: nausea and vomiting) Qty: 7 0RF Discharge Orders: Discharge ED (Routine); Ordered 11/30/21 Ordered By: Ryan Goodson Referrals: Trinidad Gomez DO [Primary Care Provider] - Patient Instructions: Abdominal Pain (ED), Opioid Safety Activity Restrictions/Additional Instructions: Home and rest. Continue drinking sips of water to maintain hydration. Take pantoprazole 30 minutes before your first meal of the day to cut down acid production and help with pain. Use ondansetron every 8 hours as needed for nausea. Use hydrocodone for severe pain. You may use [id number] Mylanta as needed for further pain relief. Avoid carbonated beverages, significant amounts of caffeine, nicotine and alcohol use. Case management will contact you about follow-up appointment with general surgeon for upper endoscopy to evaluate your stomach and look for other reasons for your pain. Return to ER for fever greater than 100.4, blood in vomit or stool, or new concerns. 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
[2021-11-30 18:49] LABS: Add Urine Microscopic? YES; Bilirubin Urine Neg (Negative); Blood Urine 2+ (Negative); Glucose Urine UA Norm (Normal); Ketones Urine Negative (Negative); Leukocyte Esterase Urine Negative (Negative); Nitrate Urine Negative (Negative); Protein Urine Neg (Negative); RBC Urine 0-4 /hpf (0-2); Urine Appearance Clear (CLEAR); Urine Color Yellow (Yellow); Urobilinogen Urine Norm (Negative); pH Urine 5 (5-7)
[2021-11-30 18:50] LABS: Add Urine Culture? No; Bacteria Urine 1+ /hpf; WBC Urine 0-4 /hpf (0-5)
[2021-11-30] MEDS: pantoprazole DR 40 mg Tablet PO (19:02)
[2021-11-30] MEDS: ondansetron 4 MG Tablet PO (19:02)
--- NOTE | 2021-12-01 11:01 | DCPLANNER ---
Addendum entered by Arlene Coko 01/05/22 17:13: child nutrition manager was sent the following messages regarding patients referral: After multiple attempts to get in contact with patient. We are mailing patient a letter to get patient to call us. left message 12/05 On 12/02/21 @ 10:05 Yanique Contreras Wrote To Child Nutrition Manager Front Off left message 12/02 On 12/01/21 @ 11:19 Yanique Contreras Wrote To Child Nutrition Manager Front Off unablle to reach patient left message 12/01 will need to speak to patient about FA Original Note: child nutrition manager had message to schedule a follow up appointment for patient with general surgery. child nutrition manager sent patients information to the front office staff at general surgery. Patients information will be printed and reviewed. Clinic will call patient with appointment information.
== END 2021-11-30 19:10 | disposition home or self-care (01) ==
PROVIDERS: Physician Assistant; Emergency Provider Nurse Practitioner Family; PCP Family Medicine
DX: R10.13 Epigastric pain (principal)
CPT/HCPCS: 80053; 81001; 83690; 85025; 99283; Q0162

== ENCOUNTER 2021-12-10 15:44 | Emergency (ER) | payer SELFPAY ==
[2021-12-10 16:02] VITALS: BP 138/86; PULSE 63; RESP 18; TEMP 36.8; O2SAT 96; BMI 29.0
--- NOTE | 2021-12-10 18:29 | XRR_ITS ---
PROCEDURE INFORMATION: Exam: XR Chest Exam date and time: 12/10/2021 6:39 PM Age: 51 years old Clinical indication: Other: Syncope; Additional info: Syncopal episode TECHNIQUE: Imaging protocol: Radiologic exam of the chest. Views: 1 view. COMPARISON: CR XR chest 1V portable [id number] 11/21/2019 10:41 PM FINDINGS: Lungs: Lungs are clear bilaterally. Pleural spaces: No pleural effusion. No pneumothorax. Heart/Mediastinum: The cardiac silhouette and mediastinal contours are unremarkable. Bones/joints: Unremarkable for age. XR/XR chest 1V portable [id number] IMPRESSION: No acute cardiopulmonary process.
[2021-12-10 18:39] LABS: Basophils # 0.1 10^3/uL (0.0-0.1); Basophils % 0.8 %; Eosinophils # 0.1 10^3/uL (0.0-0.8); Eosinophils % 1.8 %; Hematocrit 38.8 % (37.0-47.0); Hemoglobin 13.1 g/dL (11.5-15.3); Lymphocytes # 2.8 10^3/uL (0.8-4.8); Lymphocytes % 45.4 %; Mean Corpuscular HGB Conc 33.8 g/dL (30.0-36.0); Mean Corpuscular Hemoglobin 30.5 pg (28.0-34.0); Mean Corpuscular Volume 90.4 fl (81-99); Mean Platelet Volume 9.7 fL (7.4-10.4); Monocytes # 0.3 10^3/uL (0.2-0.9); Monocytes % 5.1 %; Neutrophils # 2.91 10^3/uL (1.8-7.7); Neutrophils % 46.6 %; Nucleated Red Blood Cells % 0 %; Platelet Count 350 10^3/cmm (130-400); Red Blood Count 4.29 10^6/uL (4.1-5.3); Red Cell Distribution Width 12.5 % (12.1-15.1); White Blood Count 6.2 10^3/uL (4.0-10.0)
--- NOTE | 2021-12-10 18:40 | PC.NURSE ---
Pt placed on bedside cardiac cath technician
--- NOTE | 2021-12-10 18:43 | CTR_ITS ---
PROCEDURE INFORMATION: Exam: CT Head Without Contrast Exam date and time: 12/10/2021 6:58 PM Age: 51 years old Clinical indication: Pain; Syncope and collapse; Patient HX: Syncopal episode. C/O headache. ; Additional info: Migraine TECHNIQUE: Imaging protocol: Computed tomography of the head without contrast. Sagittal and coronal reformatted images were created and reviewed. Radiation optimization: All CT scans at this facility use at least one of these dose optimization techniques: automated exposure control; mA and/or kV adjustment per patient size (includes targeted exams where dose is matched to clinical indication); or iterative reconstruction. COMPARISON: No relevant prior studies available. RADIATION DOSE METRICS: Total DLP (mGy-cm): 808.75 FINDINGS: Brain: No acute intracranial hemorrhage. No acute infarct. No intra-axial or extra-axial masses. Hill-white matter differentiation is preserved. No cerebral edema. No extra-axial fluid collections. No midline shift. No evidence for Chiari 1 malformation. Cerebral ventricles: No hydrocephalus. Paranasal sinuses: Visualized paranasal sinuses are clear. Mastoid air cells: Visualized mastoid air cells are clear. Orbital cavities: No acute abnormality in the visualized orbits. Bones/joints: No acute fracture. Soft tissues: The extracranial soft tissues are unremarkable. CT/CT head wo con* [id number] IMPRESSION: No acute abnormality of the brain.
--- NOTE | 2021-12-10 18:46 | W.ED.GENADLT ---
HPI - General Adult General: Chief complaint: General Medical Stated complaint: SYNCOPE Time Seen by Provider: 12/10/21 18:24 History of Present Illness: Patient is a 51-year-old female comes to the ED with syncopal episode. Syncopal episode occurred just prior to arrival. She was sitting on the couch and went to stand up. The next thing she remembers is waking up on the floor. She felt a little disoriented at first but is now back to baseline. For the past 8 days patient has been having cough, migraine type headache and nausea. She says her headache is currently an 8 out of 10 and she endorses photophobia with headache. She was exposed to somebody who tested positive for COVID right at the start of her symptoms. She was tested for COVID-19 approximately 7 days ago and it was negative. She has continued to have nausea headache and cough for the last 8 days. She endorses having some chest tightness as well. Says the chest tightness worsens when she has a cough. Associated symptoms: Reports headache(s), malaise, nausea and syncope; Deny chest pain, dyspnea, rash, palpitations or vomiting Review of Systems Const: Reports: malaise; Denies: fever(s), chills or fatigue Eyes: Reports: photophobia; Denies: change in vision or eye discomfort ENMT: Denies: throat pain, odynophagia, nasal discharge or nasal congestion Card: Reports: lightheadedness and syncope; Denies: chest pain, palpitations, edema, swelling of feet/ankles, dyspnea on exertion or orthopnea Resp: Reports: non-productive cough; Denies: dyspnea or productive cough GI: Reports: nausea; Denies: abdominal pain, vomiting, diarrhea, constipation or hematochezia : Denies: flank pain, dysuria or hematuria Musc: Denies: neck pain, back pain or extremity swelling Skin/Breast: Denies: rash or new lesions Neuro: Reports: headache(s) and dizziness (Feels little dizzy when she first gets up.); Denies: numbness in extremities or weakness in extremities [facility] PFSH: Medical History (Updated 12/10/21 @ 20:41 by MARGOT Smith) Binge eating disorder Bipolar I disorder, most recent episode mixed, severe without psychotic features Chronic post-traumatic stress disorder History of cervical cancer Other stimulant dependence, in remission methamphetamines, in sustained remission Recurrent UTI Status post hysteroscopy Urinary incontinence, mixed Surgical History H/O dilation and curettage History of salpingectomy S/P section S/P tonsillectomy Family History Family/Other Cancer Psychiatric illness Bipolar CAD (coronary artery disease) Diabetes Social History Smoking and tobacco status: never smoked Alcohol intake: never Marital status: Current occupational status: employed History of recent travel: No Physical Exam Const: COMMON NORMALS: patient oriented x3 and alert HENMT: COMMON NORMALS: normocephalic HEAD & SCALP: normocephalic MOUTH: Normal oral and palatal mucosa present THROAT: posterior oropharynx normal and uvula midline Neck/C-Spine: COMMON NORMALS: supple GENERAL: Yes normal visual inspection Resp: COMMON NORMALS: normal respiratory effort, No retractions, No use of accessory muscles and clear to auscultation bilaterally AUSCULTATION: clear to auscultation bilaterally Cardio: COMMON NORMALS: regular rate, regular rhythm, S1 normal heart sound present, S2 normal heart sound present, No gallops present (Cardio), No clicks present (Cardio), No murmurs present (Cardio) and Peripheral pulses 2+ throughout RATE: regular rate RHYTHM: regular rhythm HEART SOUNDS: S1 normal heart sound present and S2 normal heart sound present PERIPHERAL PULSES: Peripheral pulses 2+ throughout GI: COMMON NORMALS: Normal to inspection, nondistended, normoactive bowel sounds present, Soft to palpation, non-tender and no masses PALPATION: Yes Soft to palpation : COMMON NORMALS: Yes no CVA tenderness BLADDER/KIDNEY EXAM: Yes no CVA tenderness Back/Pelvis: COMMON NORMALS: no CVA tenderness Extremity: COMMON NORMALS: normal to inspection Neuro: COMMON NORMALS: patient oriented x3 and moves all extremities SENSORIUM/ORIENTATION: Yes alert Skin: GENERAL SKIN EXAM: dry skin Course ED course: After patient received IV migraine cocktail her headache that was rated an 8 out of 10 upon arrival had decreased to a 2 out of 10. She says she is feeling much better would like to go home and rest. Vital Signs: Vital signs: Vital Signs Temperature 98.3 F 12/10/21 16:02 Pulse Rate 83 12/10/21 20:00 Respiratory Rate 16 12/10/21 20:00 Blood Pressure 122/69 12/10/21 20:00 Pulse Oximetry 98 12/10/21 20:00 MDM - General Adult Medical Decision Making Patient is a 51-year-old female comes to the ED with syncopal episode. Syncopal episode occurred when she stood up from sitting position. Patient has been sick for the past week and also complaining of having a migraine type headache. She has been having a cough and some nausea as well. For the past week she has not been eating and drinking much due to feeling unwell. Vitals are stable. Exam is benign. Neuro exam showed no deficits. Chest x-ray shows no acute findings. CT of head shows no acute findings. Labs were unremarkable. COVID-19 test was positive. Troponins negative. EKG showed no acute findings. After patient received IV migraine cocktail her headache that was rated an 8 out of 10 upon arrival had decreased to a 2 out of 10. She says she is feeling much better would like to go home and rest. Patient was diagnosed with COVID-19 and a migraine and syncopal episode. She was stable for discharge home and told to follow-up with her PCP in the next week for reevaluation. Return to ED precautions given. Patient understood and agreed with plan. Lab Data I reviewed the patient's lab results. : 12/10/21 15:56 12/10/21 15:56 Radiology Impressions Chest X-Ray 12/10/21 18:29 IMPRESSION: No acute cardiopulmonary process. Head CT 12/10/21 18:43 IMPRESSION: No acute abnormality of the brain. Laboratory Results WBC 6.2 10^3/uL (4.0-10.0) 12/10/21 15:56 RBC 4.29 10^6/uL (4.1-5.3) 12/10/21 15:56 Hgb 13.1 g/dL (11.5-15.3) 12/10/21 15:56 Hct 38.8 % (37.0-47.0) 12/10/21 15:56 MCV 90.4 fl (81-99) 12/10/21 15:56 MCH 30.5 pg (28.0-34.0) 12/10/21 15:56 MCHC 33.8 g/dL (30.0-36.0) 12/10/21 15:56 RDW 12.5 % (12.1-15.1) 12/10/21 15:56 Plt Count 350 10^3/cmm (130-400) 12/10/21 15:56 MPV 9.7 fL (7.4-10.4) 12/10/21 15:56 Neut % (Auto) 46.6 % 12/10/21 15:56 Lymph % (Auto) 45.4 % 12/10/21 15:56 [place] % (Auto) 5.1 % 12/10/21 15:56 Eos % (Auto) 1.8 % 12/10/21 15:56 Baso % (Auto) 0.8 % 12/10/21 15:56 Neut # (Auto) 2.91 10^3/uL (1.8-7.7) 12/10/21 15:56 Lymph # (Auto) 2.8 10^3/uL (0.8-4.8) 12/10/21 15:56 [place] # (Auto) 0.3 10^3/uL (0.2-0.9) 12/10/21 15:56 Eos # (Auto) 0.1 10^3/uL (0.0-0.8) 12/10/21 15:56 Baso # (Auto) 0.1 10^3/uL (0.0-0.1) 12/10/21 15:56 Nucleated RBC % (auto) 0 % 12/10/21 15:56 Nucleated RBCs # 0.0 /100WBC 12/10/21 15:56 Sodium 138 mmol/L (136-145) 12/10/21 15:56 Potassium 3.8 mmol/L (3.5-5.1) 12/10/21 15:56 Chloride 104 mmol/L (98-107) 12/10/21 15:56 Carbon Dioxide 24 mmol/L (22-29) 12/10/21 15:56 Anion Gap 13.8 (5-19) 12/10/21 15:56 BUN 13 mg/dL (6-20) 12/10/21 15:56 Creatinine 0.8 mg/dL (0.5-0.9) 12/10/21 15:56 GFR Calculation 75.9 mL/min (90-130) L 12/10/21 15:56 Glucose 71 mg/dL (65-115) 12/10/21 15:56 Calculated Osmolality 285 mOsm/kg (285-295) 12/10/21 15:56 Calcium 8.8 mg/dL (8.5-10.5) 12/10/21 15:56 Total Bilirubin 0.2 mg/dL (0.15-1.2) 12/10/21 15:56 AST 13 U/L (0-32) 12/10/21 15:56 ALT 10 U/L (0-33) 12/10/21 15:56 Alkaline Phosphatase 57 IU/L (35-105) 12/10/21 15:56 Troponin T Baseline 6 ng/L (0-10) 12/10/21 15:56 Troponin T 120 Minute 6.00 ng/L (0-10) 12/10/21 19:54 Delta Troponin T 0 ABS# (0-10) 12/10/21 19:54 Total Protein 6.5 g/dL (6.6-8.7) L 12/10/21 15:56 Albumin 4.0 g/dL (3.5-5.2) 12/10/21 15:56 Globulin 2.5 g/dL (1.3-4.6) 12/10/21 15:56 SARS-CoV-2 Ag (Rapid) Positive (Negative) H 12/10/21 19:08 EKG Data EKG 1: EKG interpretation date: 12/10/21 Interpretation: Sinus rhythm, 60 bpm, no ST segment elevation or depression seen. Computer generated interpretation: Chest X-Ray 12/10/21 18:29 IMPRESSION: No acute cardiopulmonary process. Head CT 12/10/21 18:43 IMPRESSION: No acute abnormality of the brain. Discharge Plan Discharge Patient Disposition: Home Clinical Impression: COVID-19 Episode of syncope Qualifiers: Syncope type: vasovagal syncope Qualified Code(s): R55 - Syncope and collapse Migraine Qualifiers: Migraine type: without aura Status migrainosus presence: with status migrainosus Intractability: not intractable Qualified Code(s): G43.001 - Migraine without aura, not intractable, with status migrainosus Condition: Stable Prescriptions: New ondansetron 4 mg tablet,disintegrating 4 mg PO Q8H PRN (Reason: nausea and vomiting) Qty: 15 0RF No Action Zyrtec 10 mg capsule 10 mg PO DAILY 0RF prednisone 10 mg tablet 10 mg PO DAILY 12 Days Qty: 42 0RF Rx Instructions: 12 day taper Instructions on how to take was given to patient in clinic. diphenhydramine HCl [Benadryl] 25 mg capsule 75 mg PO .QHS PRN0RF omeprazole 20 mg tablet,delayed release (DR/EC) 20 mg PO BID 0RF potassium chloride 10 mEq tablet extended release 10 meq PO DAILY 0RF furosemide [Lasix] 20 mg tablet 20 mg PO DAILY 0RF fluconazole [Diflucan] 150 mg tablet 150 mg PO Q3D Qty: 2 0RF bupropion HCl [Wellbutrin XL] 150 mg tablet extended release 24 hr 150 mg PO QAM Qty: 30 6RF Rx Instructions: Take one tablet every morning aripiprazole [Abilify] 15 mg tablet 15 mg PO .bedtime Qty: 30 6RF Rx Instructions: Take one tablet at bedtime bupropion HCl [Wellbutrin XL] 300 mg tablet extended release 24 hr 300 mg PO QAM Qty: 30 6RF Rx Instructions: Take one tablet every morning lamotrigine [Lamictal] 200 mg tablet 200 mg PO BID Qty: 60 6RF Rx Instructions: Take one tablet twice per day trazodone 100 mg tablet 200 mg PO .QHS PRN (Reason: sleep) Qty: 60 6RF Rx Instructions: Take two tablets at bedtime ondansetron 4 mg tablet,disintegrating 4 mg PO Q8H PRN (Reason: nausea and vomiting) Qty: 7 0RF pantoprazole 40 mg tablet,delayed release (DR/EC) 40 mg PO DAILY Qty: 30 0RF Rx Instructions: take 30 minutes to first meal of day ondansetron 4 mg tablet,disintegrating 4 mg PO Q8H PRN (Reason: nausea and vomiting) Qty: 10 0RF hydrocodone-acetaminophen 5-325 mg tablet 1 tab PO Q8H PRN (Reason: pain (scale score 7-10)) Qty: 6 0RF Discharge Orders: Discharge ED (Routine); Ordered 12/10/21 Ordered By: Quinton Cary Referrals: Trinidad Gomez DO [Primary Care Provider] - Discharge Diet: Regular Discharge Activity: Increase activity as tolerated Patient Instructions: Syncope (DC), COVID-19 (Coronavirus Disease 2019) (ED) Activity Restrictions/Additional Instructions: Follow-up with medical provider as directed in the next 5 to 7 days reevaluation.Take medications as prescribed. Make sure you drink plenty fluids and stay hydrated, especially while sick. Return to the ER or your medical provider if condition worsens. Please read and understand discharge instructions. Thank you for choosing [facility] for your healthcare needs today. Please realize this is an emergency room and that we are providing you with a medical screening exam and this may not be complete and all inclusive of all the testing and or work up that you may need to determine your ailment or severity of your illness. It is very important that you follow up as instructed or that you return to the Emergency Department should you have concerns or if your condition changes or worsens in any way. 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
[2021-12-10 18:53] VITALS: BP 123/74; PULSE 65; RESP 14; O2SAT 97
[2021-12-10 18:55] LABS: Alanine Aminotransferase 10 U/L (0-33); Alkaline Phosphatase 57 IU/L (35-105); Anion Gap 13.8 (5-19); Aspartate Amino Transferase 13 U/L (0-32); Blood Urea Nitrogen 13 mg/dL (6-20); Calcium 8.8 mg/dL (8.5-10.5); Carbon Dioxide 24 mmol/L (22-29); Chloride 104 mmol/L (98-107); Globulin 2.5 g/dL (1.3-4.6); Glomerular Filtration Rate 75.9 mL/min (90-130); Glucose 71 mg/dL (65-115); Osmolality Calculated 285 mOsm/kg (285-295); Potassium 3.8 mmol/L (3.5-5.1); Sodium 138 mmol/L (136-145); Total Bilirubin 0.2 mg/dL (0.15-1.2); Total Protein 6.5 g/dL (6.6-8.7)
[2021-12-10 18:56] LABS: Troponin(5th) Baseline 6 ng/L (0-10)
[2021-12-10] MEDS: diphenhydrAMINE 50 mg/mL SDV 1mL 25 MG IVP (19:02)
[2021-12-10] MEDS: ketorolac 30 mg/mL INJ IVP (19:03)
[2021-12-10] MEDS: dexamethasone 10 mg/mL INJ IVP (19:04)
[2021-12-10] MEDS: sodium chloride 0.9% 500 ML 999 ML IV (19:04)
[2021-12-10] MEDS: metoclopramide 5 mg/mL SDV 2 mL 10 MG IVP (19:04)
[2021-12-10 19:36] LABS: SARS Covid-2 Antigen Positive (Negative)
[2021-12-10 20:00] VITALS: BP 122/69; PULSE 83; RESP 16; O2SAT 98
[2021-12-10 20:25] LABS: Troponin 5 2HR Delta 0 ABS# (0-10)
--- NOTE | 2021-12-10 20:30 | ECG_ITS ---
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 Measurements Intervals [place] Rate: 60 P: 59 SC: 131 QRS: 32 QRSD: 98 T: 50 QT: 422 QTc: 424 Interpretive Statements SINUS RHYTHM Compared to ECG 11/21/2019 22:51:49 No significant changes Electronically Signed On 12-11-2021 13:26:36 CDT by Jet Deleon M.D. [id number]
== END 2021-12-10 20:57 | disposition home or self-care (01) ==
PROVIDERS: Emergency Provider Physician Assistant; PCP Family Medicine
DX: U07.1 COVID-19 (principal); R55 Syncope and collapse; G43.001 Migraine without aura, not intractable, with status migrainosus; Z85.41 Personal history of malignant neoplasm of cervix uteri
CPT/HCPCS: 70450; 71045; 80053; 84484; 85025; 87426; 93005; 96361; 96374; 96375; 99285; J1100; J1200; J1885; J2765; J7040

== ENCOUNTER → 2022-03-02 15:12 | Outpatient (BNVA) | payer SELFPAY | PROVIDERS: PCP Family Medicine; Visit Provider Family Medicine | DX: R07.9 Chest pain, unspecified (principal); Z76.89 Persons encountering health services in other specified circumstances; K52.9 Noninfective gastroenteritis and colitis, unspecified; R60.0 Localized edema | CPT/HCPCS: 80053; 80061; 83036; 83880; 84439; 84443; 84484; 85025; 86140; 86803; 87806 ==

== ENCOUNTER → 2022-03-05 12:11 | Outpatient (BNVA) | payer SELFPAY | PROVIDERS: PCP Family Medicine; Visit Provider Family Medicine | DX: R07.9 Chest pain, unspecified (principal); Z76.89 Persons encountering health services in other specified circumstances; K52.9 Noninfective gastroenteritis and colitis, unspecified; R60.0 Localized edema | CPT/HCPCS: 87493 ==

== ENCOUNTER 2022-03-23 09:32 | Outpatient (CLI) | payer SELFPAY ==
--- NOTE | 2022-03-23 10:09 | XRR_ITS ---
PROCEDURE INFORMATION: Exam: XR Chest Exam date and time: 03/23/2022 10:21 AM Age: 51 years old Clinical indication: Pain; Chest pressure; Additional info: Chest pain TECHNIQUE: Imaging protocol: Radiologic exam of the chest. Views: 2 views. COMPARISON: CR XR chest 1V portable [id number] 12/10/2021 6:39 PM FINDINGS: Lungs: Unremarkable. No consolidation. Pleural spaces: Unremarkable. No pleural effusion. No pneumothorax. Heart/Mediastinum: Unremarkable. No cardiomegaly. Bones/joints: Unremarkable. XR/XR chest 2V* [id number] IMPRESSION: No acute findings.
--- NOTE | 2022-03-23 10:09 | XR_ITS ---
WS: [id number] XR lumbar spine 2-3V* [id number] REASON FOR EXAM: Chronic low back pain FINDINGS: Mild rotatory scoliosis convex left. Exaggerated lordosis on the lateral view. No significant compression deformity or other focal vertebral body abnormality. The disc spaces are relatively well-preserved. There is a 3 mm anterolisthesis of L4 in relation to L5 and L3. There is 2 to 3 mm of anterolisthesis of L2 in relation to L3 and L1. XR/XR lumbar spine 2-3V* [id number] IMPRESSION: Degenerative spondylosis of the lumbar spine as above.
[2022-03-23 10:40] LABS: Erythrocyte Sedimentation Rate 19 mm/hr (0-15)
[2022-03-23 10:55] LABS: Troponin(5th) Baseline 6 ng/L (0-10)
[2022-03-23 11:00] LABS: Anion Gap 13.7 (5-19); Blood Urea Nitrogen 12 mg/dL (6-20); Calcium 8.7 mg/dL (8.5-10.5); Carbon Dioxide 27 mmol/L (22-29); Chloride 99 mmol/L (98-107); Glomerular Filtration Rate 88.6 mL/min (90-130); Glucose 89 mg/dL (65-115); NT Pro B Type Natriuretic Pept 51 pg/mL (0-125); Osmolality Calculated 281 mOsm/kg (285-295); Potassium 3.7 mmol/L (3.5-5.1); Sodium 136 mmol/L (136-145)
== END 2022-03-23 09:33 | disposition home or self-care (01) ==
LOC: LAB 09:36
PROVIDERS: PCP Family Medicine; Visit Provider Family Medicine
DX: R07.9 Chest pain, unspecified (principal); E87.6 Hypokalemia; R60.0 Localized edema; M47.816 Spondylosis without myelopathy or radiculopathy, lumbar region
CPT/HCPCS: 36415; 71046; 72100; 80048; 83880; 84484; 85651; 86140

== ENCOUNTER → 2022-05-03 11:14 | Outpatient (BNVA) | payer SELFPAY | PROVIDERS: PCP Family Medicine; Visit Provider Emergency Medicine | DX: N39.0 Urinary tract infection, site not specified (principal); R30.0 Dysuria; N76.0 Acute vaginitis; B96.89 Other specified bacterial agents as the cause of diseases classified elsewhere | CPT/HCPCS: 81000; 87086; 87491; 87591; 87661 ==

== ENCOUNTER 2022-10-22 11:40 | Emergency (ER) | payer SELFPAY ==
[2022-10-22 11:41] VITALS: BP 140/84; PULSE 70; RESP 16; TEMP 36.7; O2SAT 99; BMI 39.0
--- NOTE | 2022-10-22 11:42 | XRR_ITS ---
PROCEDURE INFORMATION: Exam: XR Chest Exam date and time: 10/22/2022 12:03 PM Age: 52 years old Clinical indication: Pain; Chest pressure; Additional info: Chest pain TECHNIQUE: Imaging protocol: Radiologic exam of the chest. Views: 1 view. COMPARISON: CR XR chest 2V* [id number] 03/23/2022 10:21 AM FINDINGS: Lungs: Unremarkable. No consolidation. Pleural spaces: Unremarkable. No pleural effusion. No pneumothorax. Heart/Mediastinum: Unremarkable. No cardiomegaly. Bones/joints: Unremarkable. XR/XR chest 1V portable [id number] IMPRESSION: No acute findings.
--- NOTE | 2022-10-22 11:42 | ED_ITS ---
HPI - Chest Pain General: Chief Complaint: Chest Pain Stated Complaint: CHEST PAIN Time Seen by Provider: 10/22/22 11:42 History of Present Illness: Presents to the ER by EMS with complaints of chest pain since 630 this morning. Patient states she has no cardiac history other than high blood pressure. Patient was given 4 mg Zofran on route for nausea. Patient states her pain is substernal does not radiate. MD complaint: chest pain Onset (ago): hour(s) (Proximately 5 hours ago) Timing of current episode: constant Prior episodes: No Pain location: substernal Severity: moderate Quality: tightness and aching Relieving factors: nothing Exacerbating factors: palpation Associated symptoms: Reports dyspnea and nausea; Deny abdominal pain, fever(s), palpitations or vomiting Review of Systems General: Reports: 10 or more systems reviewed and unremarkable except in HPI and below Const: Denies: fever(s) or chills Eyes: Denies: change in vision or blurry vision ENMT: Denies: throat pain or odynophagia Card: Reports: chest pain; Denies: palpitations or irregular heart rhythm Resp: Reports: dyspnea; Denies: productive cough or non-productive cough GI: Reports: nausea; Denies: abdominal pain, vomiting or diarrhea : Denies: flank pain or dysuria PFSH ED PFSH: Medical History Bipolar I disorder, most recent episode mixed, severe without psychotic features Chronic post-traumatic stress disorder History of cervical cancer Psychiatric care Recurrent UTI Status post hysteroscopy Urinary incontinence, mixed Surgical History H/O dilation and curettage History of salpingectomy S/P section S/P tonsillectomy Family History Family/Other Cancer Psychiatric illness Bipolar CAD (coronary artery disease) Diabetes Social History Smoking and tobacco status: never smoked Alcohol intake: never Substance/Drug Use: never Marital status: Current occupational status: employed Female Reproductive History: Para: 2 Spontaneous abortions: Yes Physical Exam Const: COMMON NORMALS: no acute distress, average body habitus, patient oriented x3, no limitations, healthy appearing, alert and well nourished HENMT: COMMON NORMALS: normocephalic, atraumatic, hearing grossly normal bilaterally, external ears normal, Normal external nose present and moist oral mucous membranes HEAD & SCALP: normocephalic and atraumatic NOSE: Normal external nose present EXTERNAL EAR: Yes external ears normal Eye: COMMON NORMALS: Equal, round and reactive pupils present, EOMs intact bilaterally, conjunctivae normal and no scleral icterus CONJUNCTIVA: Yes conjunctivae normal PUPIL: Yes Equal, round and reactive pupils present Neck/C-Spine: COMMON NORMALS: full ROM, no lymphadenopathy, supple, no meningeal signs, no JVD and Thyroid normal THYROID: Thyroid normal Lymph: LYMPHATIC: no lymphadenopathy noted Chest: COMMONS NORMALS: normal inspection of the chest Breast/axilla inspection: Yes Other (Tender to palpation over sternal region which reproduces patient's chest pa) Resp: COMMON NORMALS: normal respiratory effort, No retractions, No use of accessory muscles and clear to auscultation bilaterally AUSCULTATION: clear to auscultation bilaterally Cardio: COMMON NORMALS: no JVD, regular rate, regular rhythm, S1 normal heart sound present and S2 normal heart sound present RATE: regular rate RHYTHM: regular rhythm HEART SOUNDS: S1 normal heart sound present and S2 normal heart sound present GI: COMMON NORMALS: Normal to inspection, nondistended, normoactive bowel sounds present, Soft to palpation, non-tender, No hepatosplenomegaly present and no masses PALPATION: Yes Soft to palpation and Yes No hepatosplenomegaly present Neuro: COMMON NORMALS: patient oriented x3 SENSORIUM/ORIENTATION: Yes alert MENINGEAL SIGNS: Yes no meningeal signs Course Vital Signs: Vital signs: Vital Signs Temperature 98.1 F 10/22/22 11:41 Pulse Rate 72 10/22/22 14:00 Respiratory Rate 16 10/22/22 11:41 Blood Pressure 125/81 10/22/22 14:00 Pulse Oximetry 96 10/22/22 14:00 Oxygen Delivery Me thod Room Air 10/22/22 14:00 MDM - Chest Pain Medical Decision Making Patient presents to the ER with substernal nonradiating chest pain. Cardiac work-up was performed with serial EKGs and troponins which revealed normal CBC and CMP. Troponin initially of 6 and 2-hour repeat of 6 for delta of 0. Is thought that this is atypical chest pain and patient will be discharged home to follow-up with her primary care physician within the next week. Differential Diagnosis Unlikely acute massive pulmonary embolism, acute respiratory failure, acute myocardial infarction, cardiac arrest or sudden cardiac Medical Records I reviewed the patient's medical records. Lab Data I reviewed the patient's lab results. 10/22/22 12:00 10/22/22 12:00 Radiology Impressions Chest X-Ray 10/22/22 11:42 IMPRESSION: No acute findings. Laboratory Results WBC 6.7 10^3/uL (4.0-10.0) 10/22/22 12:00 RBC 4.69 10^6/uL (4.1-5.3) 10/22/22 12:00 Hgb 14.0 g/dL (11.5-15.3) 10/22/22 12:00 Hct 43.5 % (37.0-47.0) 10/22/22 12:00 MCV 92.8 fl (81-99) 10/22/22 12:00 MCH 29.9 pg (28.0-34.0) 10/22/22 12:00 MCHC 32.2 g/dL (30.0-36.0) 10/22/22 12:00 RDW 13.9 % (12.1-15.1) 10/22/22 12:00 Plt Count 349 10^3/cmm (130-400) 10/22/22 12:00 MPV 9.2 fL (7.4-10.4) 10/22/22 12:00 Neut % (Auto) 41.5 % 10/22/22 12:00 Lymph % (Auto) 47.3 % 10/22/22 12:00 [place] % (Auto) 8.4 % 10/22/22 12:00 Eos % (Auto) 1.7 % 10/22/22 12:00 Baso % (Auto) 0.8 % 10/22/22 12:00 Neut # (Auto) 2.77 10^3/uL (1.8-7.7) 10/22/22 12:00 Lymph # (Auto) 3.2 10^3/uL (0.8-4.8) 10/22/22 12:00 [place] # (Auto) 0.6 10^3/uL (0.2-0.9) 10/22/22 12:00 Eos # (Auto) 0.1 10^3/uL (0.0-0.8) 10/22/22 12:00 Baso # (Auto) 0.1 10^3/uL (0.0-0.1) 10/22/22 12:00 Nucleated RBC % (auto) 0 % 10/22/22 12:00 Nucleated RBCs # 0.0 /100WBC 10/22/22 12:00 Sodium 139 mmol/L (136-145) 10/22/22 12:00 Potassium 4.1 mmol/L (3.5-5.1) 10/22/22 12:00 Chloride 104 mmol/L (98-107) 10/22/22 12:00 Carbon Dioxide 22 mmol/L (22-29) 10/22/22 12:00 Anion Gap 17.1 (5-19) 10/22/22 12:00 BUN 19 mg/dL (6-20) 10/22/22 12:00 Creatinine 0.8 mg/dL (0.5-0.9) 10/22/22 12:00 GFR Calculation 75.6 mL/min (90-130) L 10/22/22 12:00 Glucose 96 mg/dL (65-115) 10/22/22 12:00 Calculated Osmolality 290 mOsm/kg (285-295) 10/22/22 12:00 Calcium 9.1 mg/dL (8.5-10.5) 10/22/22 12:00 Total Bilirubin 0.2 mg/dL (0.15-1.2) 10/22/22 12:00 AST 16 U/L (0-32) 10/22/22 12:00 ALT 15 U/L (0-33) 10/22/22 12:00 Alkaline Phosphatase 64 U/L (35-105) 10/22/22 12:00 Troponin T Baseline 6 ng/L (0-10) 10/22/22 12:00 Troponin T 120 Minute 6.00 ng/L (0-10) 10/22/22 14:06 Delta Troponin T 0 ABS# (0-10) 10/22/22 14:06 Total Protein 7.2 g/dL (6.6-8.7) 10/22/22 12:00 Albumin 4.1 g/dL (3.5-5.2) 10/22/22 12:00 Globulin 3.1 g/dL (1.3-4.6) 10/22/22 12:00 EKG Data EKG 1: I personally reviewed and interpreted this EKG as follows: EKG interpretation date: 10/22/22 EKG interpretation time: 11:44 Prior EKG tracings: not available for review Interpretation: EKG showed normal sinus rhythm with a ventricular rate of 60 bpm, ME interval 136, QRS duration 89, QTc 379, no ST-T wave changes EKG 2: I personally reviewed and interpreted this EKG as follows: EKG interpretation date: 10/22/22 EKG interpretation time: 14:17 Prior EKG tracings: available for review Interpretation: EKG showed normal sinus rhythm with ventricular rate of 67 bpm, ME interval 132, QRS duration 94, QTc of 403, no ST-T wave changes Discharge Plan Discharge Patient Disposition: Home Clinical Impression: Atypical chest pain Condition: Stable Prescriptions: No Action lamotrigine [Lamictal] 200 mg tablet 200 mg PO BID Qty: 60 3RF Rx Instructions: Take one tablet twice per day bupropion HCl [Wellbutrin XL] 150 mg tablet extended release 24 hr 150 mg PO QAM Qty: 30 3RF Rx Instructions: Take one tablet every morning bupropion HCl [Wellbutrin XL] 300 mg tablet extended release 24 hr 300 mg PO QAM Qty: 30 3RF Rx Instructions: Take one tablet every morning aripiprazole [Abilify] 20 mg tablet 20 mg PO BEDTIME Qty: 30 3RF Rx Instructions: Take one tablet at bedtime trazodone 100 mg tablet 200 mg PO .QHS Qty: 60 3RF Rx Instructions: Take two tablets at bedtime trihexyphenidyl 2 mg tablet 2 mg PO .morning Qty: 30 3RF Rx Instructions: Take one tablet every morning, take with food (meal/snack) Zyrtec 10 mg capsule 10 mg PO DAILY Qty: 30 0RF omeprazole 20 mg tablet,delayed release (DR/EC) 20 mg PO BID Qty: 60 0RF Discharge Orders: Discharge ED (Routine); Ordered 10/22/22 Ordered By: Nagi Rodriguez Referrals: Jelly Branham FNP [Primary Care Provider] - 1 week Patient Instructions: Chest Pain (ED) Coding 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
--- NOTE | 2022-10-22 11:44 | ECG_ITS ---
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 Measurements Intervals [place] Rate: 60 P: 59 SC: 136 QRS: 12 QRSD: 89 T: 50 QT: 378 QTc: 379 Interpretive Statements SINUS RHYTHM INTERPRETATION BASED ON A DEFAULT AGE OF 40 YEARS Compared to ECG 12/10/2021 19:32:51 No significant changes Electronically Signed On 10-22-2022 16:20:50 CDT by Teddy Antonio M.D. [id number]
[2022-10-22 12:16] LABS: Basophils # 0.1 10^3/uL (0.0-0.1); Basophils % 0.8 %; Eosinophils # 0.1 10^3/uL (0.0-0.8); Eosinophils % 1.7 %; Hematocrit 43.5 % (37.0-47.0); Lymphocytes # 3.2 10^3/uL (0.8-4.8); Lymphocytes % 47.3 %; Mean Corpuscular HGB Conc 32.2 g/dL (30.0-36.0); Mean Corpuscular Hemoglobin 29.9 pg (28.0-34.0); Mean Corpuscular Volume 92.8 fl (81-99); Mean Platelet Volume 9.2 fL (7.4-10.4); Monocytes # 0.6 10^3/uL (0.2-0.9); Monocytes % 8.4 %; Neutrophils # 2.77 10^3/uL (1.8-7.7); Neutrophils % 41.5 %; Nucleated Red Blood Cells % 0 %; Platelet Count 349 10^3/cmm (130-400); Red Blood Count 4.69 10^6/uL (4.1-5.3); Red Cell Distribution Width 13.9 % (12.1-15.1); White Blood Count 6.7 10^3/uL (4.0-10.0)
[2022-10-22 12:21] VITALS: BP 136/84; PULSE 70; O2SAT 98
[2022-10-22] MEDS: ketorolac 30 mg/mL INJ IVP (12:21)
[2022-10-22 12:30] VITALS: BP 134/86; PULSE 73; O2SAT 91
[2022-10-22 12:32] LABS: Alanine Aminotransferase 15 U/L (0-33); Albumin Level 4.1 g/dL (3.5-5.2); Alkaline Phosphatase 64 U/L (35-105); Aspartate Amino Transferase 16 U/L (0-32); Blood Urea Nitrogen 19 mg/dL (6-20); Calcium 9.1 mg/dL (8.5-10.5); Carbon Dioxide 22 mmol/L (22-29); Chloride 104 mmol/L (98-107); Globulin 3.1 g/dL (1.3-4.6); Glomerular Filtration Rate 75.6 mL/min (90-130); Glucose 96 mg/dL (65-115); Osmolality Calculated 290 mOsm/kg (285-295); Sodium 139 mmol/L (136-145); Total Bilirubin 0.2 mg/dL (0.15-1.2); Total Protein 7.2 g/dL (6.6-8.7)
[2022-10-22 12:33] LABS: Troponin(5th) Baseline 6 ng/L (0-10)
[2022-10-22 12:44] LABS: Anion Gap 17.1 (5-19); Potassium 4.1 mmol/L (3.5-5.1)
[2022-10-22 13:30] VITALS: BP 123/77; PULSE 75; O2SAT 94
[2022-10-22 14:00] VITALS: BP 125/81; PULSE 72; O2SAT 96
--- NOTE | 2022-10-22 14:17 | ECG_ITS ---
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 Measurements Intervals [place] Rate: 67 P: 64 MD: 132 QRS: 16 QRSD: 94 T: 51 QT: 388 QTc: 410 Interpretive Statements SINUS RHYTHM Compared to ECG 10/22/2022 11:44:09 No significant changes Electronically Signed On 10-22-2022 16:21:04 CDT by Teddy Antonio M.D. [id number]
[2022-10-22 15:10] LABS: Troponin 5 2HR Delta 0 ABS# (0-10)
[2022-10-22 16:15] VITALS: BP 111/72; PULSE 66; O2SAT 95
[2022-10-22 16:20] LABS: Add Urine Microscopic? NO; Charge for UA Resulting for Rev
[2022-10-22 16:35] LABS: Bilirubin Urine Neg (Negative); Blood Urine Neg (Negative); Glucose Urine UA Norm (Normal); Ketones Urine Negative (Negative); Leukocyte Esterase Urine Negative (Negative); Nitrate Urine Negative (Negative); Protein Urine Neg (Negative); Urine Appearance Clear (CLEAR); Urine Color Yellow (Yellow); Urobilinogen Urine Norm (Negative); pH Urine 6.5 (5-7)
== END 2022-10-22 16:15 | disposition home or self-care (01) ==
PROVIDERS: Emergency Provider Emergency Medicine; PCP Nurse Practitioner Family
DX: R07.89 Other chest pain (principal); Z85.41 Personal history of malignant neoplasm of cervix uteri
CPT/HCPCS: 71045; 80053; 81003; 84484; 85025; 93005; 96374; 99285; J1885

== ENCOUNTER → 2023-02-05 09:52 | Outpatient (BNVA) | payer SELFPAY | PROVIDERS: PCP Nurse Practitioner Family; Visit Provider Nurse Practitioner Family | DX: R35.0 Frequency of micturition (principal); N30.00 Acute cystitis without hematuria | CPT/HCPCS: 81000 ==

== ENCOUNTER 2023-03-02 07:57 | Emergency (ER) | payer SELFPAY ==
[2023-03-02 08:19] VITALS: BP 139/72; PULSE 72; RESP 18; TEMP 36.7; O2SAT 97; BMI 40.3
--- NOTE | 2023-03-02 08:24 | XR_ITS ---
WS: [id number] Exam: XR wrist RT min 3V* [id number] Date/Time of Exam: 03/02/2023 8:28 AM Reason For Exam: injury No fracture or dislocation. Probable old fracture of the ulnar styloid. Normal soft tissues. IMPRESSION: 1. No acute fracture.
--- NOTE | 2023-03-02 08:24 | XR_ITS ---
WS: [id number] Exam: XR elbow RT min 3V* [id number] Date/Time of Exam: 03/02/2023 8:28 AM Reason For Exam: injury Comparison 11/21/2010. Findings: There are no fractures, soft tissue swelling, or calcifications. The elbow shows normal bony alignme nt. There is no irregularity of the bony architecture. IMPRESSION: Negative RIGHT elbow.
[2023-03-02] MEDS: HYDROcodone-acetaminophen 5-325 mg Tablet 1 TAB PO (09:23)
--- NOTE | 2023-03-02 11:40 | W.ED.EXTPRO ---
HPI - Extremity Problem General: Chief complaint: Extremity Injury, Upper Stated complaint: right arm pain, fall Time Seen by Provider: 03/02/23 07:58 Source: patient Mode of arrival: ambulatory Limitations: no limitations History of Present Illness: Patient presents to the emergency department today accompanied by significant other for evaluation treatment of right arm injury. Patient states that while walking into work this morning she tripped on the curb. She states that she did reach her arm out to try and catch herself to prevent hitting her head which caused hyper extension of her wrist. Patient complains of pain to the right wrist, elbow, and shoulder region. She denies tingling or numbness down into the hands. She did not hit her head. Patient does not believe she broke anything but wanted to be evaluated. Review of Systems General: Reports: 10 or more systems reviewed and unremarkable except in HPI and below PFSH ED PFSH: Medical History Bipolar I disorder, most recent episode mixed, severe without psychotic features Chronic post-traumatic stress disorder History of cervical cancer Psychiatric care Recurrent UTI Status post hysteroscopy Urinary incontinence, mixed Surgical History H/O dilation and curettage History of salpingectomy S/P section S/P tonsillectomy Family History Family/Other Cancer Psychiatric illness Bipolar CAD (coronary artery disease) Diabetes Social History Smoking and tobacco status: never smoked Alcohol intake: never Substance/Drug Use: never Marital status: Current occupational status: employed Female Reproductive History: Para: 2 Spontaneous abortions: Yes Physical Exam Const: COMMON NORMALS: no acute distress, patient oriented x3 and alert HENMT: COMMON NORMALS: normocephalic, atraumatic and hearing grossly normal bilaterally HEAD & SCALP: normocephalic and atraumatic Eye: COMMON NORMALS: Equal, round and reactive pupils present, EOMs intact bilaterally and conjunctivae normal CONJUNCTIVA: Yes conjunctivae normal PUPIL: Yes Equal, round and reactive pupils present Neck/C-Spine: COMMON NORMALS: full ROM and no JVD Lymph: LYMPHATIC: no lymphadenopathy noted Resp: COMMON NORMALS: normal respiratory effort, No retractions and No use of accessory muscles Cardio: COMMON NORMALS: no JVD and regular rate RATE: regular rate Extremity: NARRATIVE EXTREMITY EXAM: Patient with full flexion extension of the fingers. Patient with flexion extension capabilities at the wrist with pain noted to the posterior wrist extending into the dorsum of the hand. Patient has some lateral condylar tenderness on the right elbow. Patient with generalized discomfort with range of motion at the right shoulder with pain on palpation primarily to the anterior lateral shoulder region. Nontender to the clavicular region, cervical vertebrae, thoracic vertebrae, or scapula. Neuro: COMMON NORMALS: patient oriented x3 SENSORIUM/ORIENTATION: Yes alert Psych: COMMON NORMALS: mental status grossly normal, Normal thought process present, cooperative and normal affect THOUGHT PROCESS: Normal thought process present Skin: COMMON NORMALS: no rashes or lesions noted and turgor normal GENERAL SKIN EXAM: no rashes or lesions noted and turgor normal Course Vital Signs: Vital signs: Vital Signs Temperature 98.1 F 03/02/23 08:19 Pulse Rate 72 03/02/23 08:19 Respiratory Rate 18 03/02/23 08:19 Blood Pressure 139/72 03/02/23 08:19 Pulse Oximetry 97 03/02/23 08:19 Oxygen Delivery Me thod Room Air 03/02/23 08:19 MDM - Extremity (Nontraumatic) Medical Decision Making Patient presents to the emergency department today for evaluation treatment of right arm injury after a fall this morning. X-rays are negative for any signs of acute bony abnormality but we did discuss overstretching of the connective tissues resulting in pain, swelling, and discomfort for several days. Patient is put into a wrist brace and given a sling for comfort. She may choose to wear the brace and sling for up to a week but, patient was instructed to remove the arm from the sling multiple times throughout the day and go through range of motion. Range of motion exercises provided on discharge paperwork packet. Patient is concerned about cost as she does not have insurance but, I did go ahead and refer her onto orthopedics should she continue to have issues with pain in these joints requiring further work-up and evaluation. Patient was given nonnarcotic pain medication to take as well. Patient verbalizes understanding and agreement to treatment plan. Differential Diagnosis Unlikely deep venous thrombosis of upper extremity (Wrist sprain, wrist fracture, Colles' fracture, radial head fracture, elbow contusion, rotator cuff injury, AC joint separation) All radiology interpretation(s) finalized by discharge Discharge Plan Discharge Patient Disposition: Home Clinical Impression: Sprain and strain of wrist, Right shoulder strain, Fall (on)(from) sidewalk curb, initial encounter Prescriptions: New tizanidine 4 mg tablet 4 mg PO Q8H PRN (Reason: muscle spasticity) Qty: 21 0RF Voltaren Arthritis Pain 1 % gel 4 g topical QID Qty: 100 0RF Rx Instructions: apply to single knee, ankle, foot; for foot includes sole/toes/top of foot naproxen 500 mg tablet 500 mg PO BID PRN (Reason: pain) Qty: 20 0RF No Action omeprazole 20 mg tablet,delayed release (DR/EC) 20 mg PO DAILY levocetirizine [Xyzal] 5 mg tablet 5 mg PO DAILY PRN (Reason: Allergic Symptoms) topiramate [Topamax] 25 mg tablet 25 mg PO BEDTIME Qty: 90 2RF trazodone 100 mg tablet 200 mg PO .QHS PRN (Reason: sleep) Qty: 180 2RF Rx Instructions: Take two tablets at bedtime as needed for sleep lamotrigine [Lamictal] 200 mg tablet 200 mg PO BID Qty: 180 2RF bupropion HCl [Wellbutrin XL] 300 mg tablet extended release 24 hr 300 mg PO QAM Qty: 90 2RF aripiprazole [Abilify] 30 mg tablet 30 mg PO BEDTIME Qty: 30 2RF bupropion HCl 150 mg tablet extended release 24 hr 150 mg PO QAM Discharge Orders: Discharge ED (Routine); Ordered 03/02/23 Ordered By: Annelise Montiel Referrals: Jelly Branham FNP [Primary Care Provider] - Discharge Diet: Usual diet Discharge Activity: Increase activity as tolerated Patient Instructions: Wrist Sprain (ED), Shoulder Pain (ED), Exercises for Shoulder Flexion and Extension (ED), Exercises for Internal and External Shoulder Rotation (ED), Exercises for Shoulder Abduction and Adduction (ED), Rotator Cuff Injury Exercises (DC) Activity Restrictions/Additional Instructions: X-rays today were read negative for signs of acute bony abnormality however, given the description of your injury you most likely have overstretched your connective tissues in the joints of your right arm. As we discussed, I have initiated a referral on your behalf for follow-up through orthopedics just in case you require further evaluation should you not have noticeable improvement of your symptoms over the next several days with conservative treatment. We are putting you in a brace and a sling to help with comfort but, I do recommend removing your arm from the sling multiple times throughout the day and performing range of motion. I provided you some at home exercises to try during this time in addition to medication to help with pain and inflammation while you are healing. 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
--- NOTE | 2023-03-05 08:02 | PC.SOCIAL ---
Ortho Referral Referral message sent to clinic at this time. Clinic to contact patient with appt date/time.
== END 2023-03-02 09:44 | disposition home or self-care (01) ==
PROVIDERS: Emergency Provider Physician Assistant; PCP Nurse Practitioner Family
DX: S63.501A Unspecified sprain of right wrist, initial encounter (principal); S66.911A Strain of unspecified muscle, fascia and tendon at wrist and hand level, right hand, initial encounter; S46.911A Strain of unspecified muscle, fascia and tendon at shoulder and upper arm level, right arm, initial encounter; Z85.41 Personal history of malignant neoplasm of cervix uteri; W01.0XXA Fall on same level from slipping, tripping and stumbling without subsequent striking against object, initial encounter
CPT/HCPCS: 73080; 73110; 97165; 99283; A4565; L3908

== ENCOUNTER → 2023-04-05 09:15 | Outpatient (BNVA) | payer OTHER, SELFPAY | PROVIDERS: PCP Nurse Practitioner Family; Visit Provider Nurse Practitioner Psychiatric/Mental Health | DX: Z79.899 Other long term (current) drug therapy (principal); F31.63 Bipolar disorder, current episode mixed, severe, without psychotic features; F43.12 Post-traumatic stress disorder, chronic | CPT/HCPCS: 80053; 80061; 83036 ==

== ENCOUNTER 2023-04-20 06:00 | Outpatient (CLI) | payer OTHER, SELFPAY | END 2023-04-20 06:01 | LOC: SPT 04-23 11:46 | PROVIDERS: PCP Nurse Practitioner Family; Visit Provider Podiatrist Foot & Ankle Surgery | DX: Z46.89 Encounter for fitting and adjustment of other specified devices (principal); M72.2 Plantar fascial fibromatosis | CPT/HCPCS: 97760; L4397 ==

== ENCOUNTER → 2023-04-20 11:02 | Outpatient (BNVA) | payer OTHER, SELFPAY | PROVIDERS: PCP Nurse Practitioner Family; Referring Provider Physician Assistant; Visit Provider Nurse Practitioner | DX: M17.0 Bilateral primary osteoarthritis of knee | CPT/HCPCS: 73560; 73565 ==

== ENCOUNTER 2023-06-15 08:43 | Emergency (ER) | payer OTHER, SELFPAY ==
[2023-06-15 08:46] VITALS: BP 147/82; PULSE 62; RESP 16; TEMP 36.7; O2SAT 98; BMI 38.7
--- NOTE | 2023-06-15 08:46 | XRR_ITS ---
PROCEDURE INFORMATION: Exam: XR Chest Exam date and time: 06/15/2023 9:03 AM Age: 52 years old Clinical indication: Pain; Angina pectoris; Additional info: Chest pain TECHNIQUE: Imaging protocol: Radiologic exam of the chest. Views: 1 view. COMPARISON: CR XR chest 1V portable [id number] 10/22/2022 12:03 PM FINDINGS: Lungs: The lung parenchyma is clear. Pleural spaces: No pneumothorax. No large pleural effusion. Heart/Mediastinum: The cardiomediastinal silhouette is within normal limits. Bones/joints: Unremarkable. XR/XR chest 1V portable [id number] IMPRESSION: No acute cardiopulmonary abnormality.
--- NOTE | 2023-06-15 08:46 | ECG_ITS ---
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 Measurements Intervals [place] Rate: 66 P: 61 NV: 135 QRS: 46 QRSD: 91 T: 60 QT: 378 QTc: 399 Interpretive Statements SINUS RHYTHM Compared to ECG 10/22/2022 14:17:04 No significant changes Electronically Signed On 06-15-2023 14:55:34 TAPPER SUPERVISOR by Jet Deleon M.D. [email or web address] [id number]
--- NOTE | 2023-06-15 08:58 | ED_ITS ---
HPI - Chest Pain 2 General: Chief Complaint: Chest Pain Stated Complaint: cp Time Seen by Provider: 06/15/23 08:46 History of Present Illness: Patient presents to the ER with chest pressure in the middle of her chest that radiates to her back. Patient states she has had this before but has not never had any heart issues. Patient used to have high blood pressure with and lost a bunch of weight and is now off all of her blood pressure medicine. Patient not take any medicine this morning. Patient says she has occasional A-fib. Patient is not on no anticoagulants. Chest pain is changeable with palpation of the sternum. Review of Systems 2 General: Reports: 10 or more systems reviewed and unremarkable except in HPI and below PFSH ED 2 PFSH: Medical History Bilateral primary osteoarthritis of knee Psychiatric care Chronic post-traumatic stress disorder Bipolar I disorder, most recent episode mixed, severe without psychotic features Urinary incontinence, mixed History of cervical cancer Status post hysteroscopy Recurrent UTI Surgical History History of salpingectomy H/O dilation and curettage S/P section S/P tonsillectomy Family History Family/Other Cancer Psychiatric illness Bipolar CAD (coronary artery disease) Diabetes Social History Smoking and tobacco/nicotine status: never used tobacco/nicotine Alcohol intake: never Substance/Drug Use: never Marital status: Current occupational status: employed Female Reproductive History: Para: 2 Spontaneous abortions: Yes Physical Exam 2 Const: COMMON NORMALS: no acute distress, average body habitus, patient oriented x3, no limitations, healthy appearing, alert and well nourished HENMT: COMMON NORMALS: normocephalic, atraumatic, hearing grossly normal bilaterally, external ears normal, Normal external nose present, moist oral mucous membranes and oropharynx normal HEAD & SCALP: normocephalic and atraumatic NOSE: Normal external nose present EXTERNAL EAR: Yes external ears normal Eye: COMMON NORMALS: Equal, round and reactive pupils present, EOMs intact bilaterally, conjunctivae normal and no scleral icterus CONJUNCTIVA: Yes conjunctivae normal PUPIL: Yes Equal, round and reactive pupils present Neck/C-Spine: COMMON NORMALS: full ROM, no lymphadenopathy, supple, no meningeal signs, no JVD and Thyroid normal THYROID: Thyroid normal Chest: COMMONS NORMALS: normal inspection of the chest; negative for normal palpation of entire chest wall (Reproducible chest wall pain with palpation of the sternum.) Resp: COMMON NORMALS: normal respiratory effort, No retractions, No use of accessory muscles and clear to auscultation bilaterally AUSCULTATION: clear to auscultation bilaterally Cardio: COMMON NORMALS: no JVD, regular rate, regular rhythm, S1 normal heart sound present, S2 normal heart sound present, No gallops present (Cardio), No clicks present (Cardio), No murmurs present (Cardio) and No rub (Cardio) R ATE: regular rate RHYTHM: regular rhythm HEART SOUNDS: S1 normal heart sound present and S2 normal heart sound present GI: COMMON NORMALS: Normal to inspection, nondistended, normoactive bowel sounds present, Soft to palpation, non-tender, No hepatosplenomegaly present and no masses PALPATION: Yes Soft to palpation and Yes No hepatosplenomegaly present Neuro: COMMON NORMALS: patient oriented x3 SENSORIUM/ORIENTATION: Yes alert MENINGEAL SIGNS: Yes no meningeal signs Course 2 Vital Signs: Vital signs: Vital Signs Temperature 98.0 F 06/15/23 08:46 Pulse Rate 74 06/15/23 11:36 Respiratory Rate 20 H 06/15/23 11:36 Blood Pressure 131/75 06/15/23 11:36 Pulse Oximetry 96 06/15/23 11:36 Oxygen Delivery Me thod Room Air 06/15/23 11:36 MDM - Chest Pain Medical Decision Making Presents to the ER with chest pain patient was worked up in a standard chest pain fashion all of which was essentially negative. Patient's pain was reproducible. Is felt that this is chest wall pain and not cardiac in nature. Patient will be referred back to her family practice doctor for further evaluation and treatment. Differential Diagnosis Unlikely acute massive pulmonary embolism, acute respiratory failure, acute myocardial infarction, cardiac arrest or sudden cardiac Medical Records I reviewed the patient's medical records. Lab Data I reviewed the patient's lab results. 06/15/23 08:59 06/15/23 08:59 Radiology Impressions Chest X-Ray 06/15/23 08:46 IMPRESSION: No acute cardiopulmonary abnormality. Laboratory Results WBC 5.79 10^3/uL (3.29-11.43) 06/15/23 08:59 RBC 4.81 10^6/uL (3.85-5.65) 06/15/23 08:59 Hgb 14.80 g/dL (11.27-16.99) 06/15/23 08:59 Hct 46.4 % (36-47) 06/15/23 08:59 MCV 96.5 fl (85-98) 06/15/23 08:59 MCH 30.8 pg (27-33) 06/15/23 08:59 MCHC 31.9 g/dL (30-55) 06/15/23 08:59 RDW 12.8 % (12.1-15.1) 06/15/23 08:59 Plt Count 344 10^3/cmm (157-399) 06/15/23 08:59 MPV 9.4 fL (7.4-10.4) 06/15/23 08:59 Neut % (Auto) 47.6 % 06/15/23 08:59 Lymph % (Auto) 41.5 % 06/15/23 08:59 [place] % (Auto) 7.3 % 06/15/23 08:59 Eos % (Auto) 2.1 % 06/15/23 08:59 Baso % (Auto) 1.2 % 06/15/23 08:59 Neut # (Auto) 2.76 10^3/uL (1.8-7.7) 06/15/23 08:59 Lymph # (Auto) 2.4 10^3/uL (0.8-4.8) 06/15/23 08:59 [place] # (Auto) 0.4 10^3/uL (0.2-0.9) 06/15/23 08:59 Eos # (Auto) 0.1 10^3/uL (0.0-0.8) 06/15/23 08:59 Baso # (Auto) 0.1 10^3/uL (0.0-0.1) 06/15/23 08:59 Nucleated RBC % (auto) 0 % 06/15/23 08:59 Nucleated RBCs # 0.0 /100WBC 06/15/23 08:59 Sodium 137 mmol/L (136-145) 06/15/23 08:59 Potassium 4.7 mmol/L (3.5-5.1) 06/15/23 08:59 Chloride 101 mmol/L (98-107) 06/15/23 08:59 Carbon Dioxide 27 mmol/L (22-29) 06/15/23 08:59 Anion Gap 13.7 (5-19) 06/15/23 08:59 BUN 19 mg/dL (6-20) 06/15/23 08:59 Creatinine 0.8 mg/dL (0.5-0.9) 06/15/23 08:59 GFR Calculation 75.6 mL/min (90-130) L 06/15/23 08:59 Glucose 95 mg/dL (65-115) 06/15/23 08:59 Calculated Osmolality 286 mOsm/kg (285-295) 06/15/23 08:59 Calcium 9.9 mg/dL (8.5-10.5) 06/15/23 08:59 Total Bilirubin 0.3 mg/dL (0.15-1.2) 06/15/23 08:59 AST 14 U/L (0-32) 06/15/23 08:59 ALT 15 U/L (0-33) 06/15/23 08:59 Alkaline Phosphatase 70 U/L (35-105) 06/15/23 08:59 Troponin T Baseline < 6 ng/L (0-10) 06/15/23 08:59 Troponin T 120 Minute 6.00 ng/L (0-10) 06/15/23 11:09 Delta Troponin T 0.71641 ABS# (0-10) 06/15/23 11:09 Total Protein 7.2 g/dL (6.6-8.7) 06/15/23 08:59 Albumin 4.4 g/dL (3.5-5.2) 06/15/23 08:59 Globulin 2.8 g/dL (1.3-4.6) 06/15/23 08:59 All radiology interpretation(s) finalized by discharge EKG Data EKG 1: I personally reviewed and interpreted this EKG as follows: EKG interpretation date: 06/15/23 EKG interpretation time: 08:51 Prior EKG tracings: not available for review Interpretation: EKG showed ventricular rate 61 bpm, NC interval 120, QRS duration 94, QTc of 391, sinus rhythm, EKG 2: I personally reviewed and interpreted this EKG as follows: EKG interpretation date: 06/15/23 EKG interpretation time: 10: Prior EKG tracings: available for review Discharge Plan Discharge Patient Disposition: Home Clinical Impression: Acute chest wall pain Condition: Stable Prescriptions: No Action bupropion HCl 150 mg tablet extended release 24 hr 150 mg PO QAM Qty: 90 2RF Rx Instructions: Take one tablet every morning aripiprazole [Abilify] 30 mg tablet 30 mg PO BEDTIME Qty: 90 2RF valacyclovir 500 mg tablet 500 mg PO BID omeprazole 20 mg tablet,delayed release (DR/EC) 20 mg PO DAILY meloxicam 15 mg tablet 15 mg PO DAILY Qty: 60 2RF lamotrigine [Lamictal] 200 mg tablet 200 mg PO BID Qty: 180 2RF bupropion HCl [Wellbutrin XL] 300 mg tablet extended release 24 hr 300 mg PO QAM Qty: 90 2RF (DME) night splint See Rx Instructions .Route .MEDSUPPLY Qty: 1 0RF Rx Instructions: As directed tramadol 50 mg tablet 50 mg PO TID PRN (Reason: pain) Qty: 15 0RF trazodone 150 mg tablet See Rx Instructions .ROUTE .COMPLEX PRN (Reason: sleep) Rx Instructions: May take one-two tablets 30-60 min prior to bedtime as needed for sleep Discharge Orders: Discharge ED (Routine); Ordered 06/15/23 Ordered By: Nagi Rodriguez Referrals: Jelly Branham FNP [Primary Care Provider] - 1 week Patient Instructions: Chest Pain - Chest Wall Activity Restrictions/Additional Instructions: Your chest pain workup in ER did not show any acute cardiac cause of your chest pain. Is felt that his chest wall pain. Please follow-up with your family practice physician in the next 7 to 10 days for further evaluation and treatment. 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
[2023-06-15 09:28] LABS: Basophils # 0.1 10^3/uL (0.0-0.1); Basophils % 1.2 %; Eosinophils # 0.1 10^3/uL (0.0-0.8); Eosinophils % 2.1 %; Hematocrit 46.4 % (36-47); Lymphocytes # 2.4 10^3/uL (0.8-4.8); Lymphocytes % 41.5 %; Mean Corpuscular HGB Conc 31.9 g/dL (30-55); Mean Corpuscular Hemoglobin 30.8 pg (27-33); Mean Corpuscular Volume 96.5 fl (85-98); Mean Platelet Volume 9.4 fL (7.4-10.4); Monocytes # 0.4 10^3/uL (0.2-0.9); Monocytes % 7.3 %; Neutrophils # 2.76 10^3/uL (1.8-7.7); Neutrophils % 47.6 %; Nucleated Red Blood Cells % 0 %; Platelet Count 344 10^3/cmm (157-399); Red Blood Count 4.81 10^6/uL (3.85-5.65); Red Cell Distribution Width 12.8 % (12.1-15.1); White Blood Count 5.79 10^3/uL (3.29-11.43)
[2023-06-15 09:33] LABS: Troponin(5th) Baseline < 6 ng/L (0-10)
[2023-06-15 09:38] LABS: Alanine Aminotransferase 15 U/L (0-33); Albumin Level 4.4 g/dL (3.5-5.2); Alkaline Phosphatase 70 U/L (35-105); Anion Gap 13.7 (5-19); Aspartate Amino Transferase 14 U/L (0-32); Blood Urea Nitrogen 19 mg/dL (6-20); Calcium 9.9 mg/dL (8.5-10.5); Carbon Dioxide 27 mmol/L (22-29); Chloride 101 mmol/L (98-107); Globulin 2.8 g/dL (1.3-4.6); Glomerular Filtration Rate 75.6 mL/min (90-130); Glucose 95 mg/dL (65-115); Osmolality Calculated 286 mOsm/kg (285-295); Potassium 4.7 mmol/L (3.5-5.1); Sodium 137 mmol/L (136-145); Total Bilirubin 0.3 mg/dL (0.15-1.2); Total Protein 7.2 g/dL (6.6-8.7)
[2023-06-15] MEDS: ketorolac 60 mg/2 mL INJ IM (09:52)
[2023-06-15 10:35] VITALS: PULSE 71; RESP 18; O2SAT 97
[2023-06-15 11:36] VITALS: BP 131/75; PULSE 74; RESP 20; O2SAT 96
[2023-06-15 11:38] LABS: Troponin 5 2HR Delta 0.00001 ABS# (0-10)
== END 2023-06-15 12:31 | disposition home or self-care (01) ==
PROVIDERS: Emergency Provider Emergency Medicine; PCP Nurse Practitioner Family
DX: R07.89 Other chest pain (principal); Z85.41 Personal history of malignant neoplasm of cervix uteri
CPT/HCPCS: 71045; 80053; 84484; 85025; 93005; 96372; 99285; J1885

== ENCOUNTER → 2023-07-05 16:01 | Outpatient (BNVA) | payer MEDICAID, SELFPAY | PROVIDERS: PCP Nurse Practitioner Family; Visit Provider Nurse Practitioner | DX: M17.0 Bilateral primary osteoarthritis of knee (principal) | CPT/HCPCS: 20610; 73560; 73565; 99214 ==

== ENCOUNTER 2023-08-14 10:04 | Outpatient (RCR) | payer OTHER, SELFPAY | END 2023-08-16 23:59 | disposition home or self-care (01) | LOC: SPT 10:04 | PROVIDERS: PCP Family Medicine; Visit Provider Nurse Practitioner | DX: M25.561 Pain in right knee (principal); M25.562 Pain in left knee; G89.29 Other chronic pain | CPT/HCPCS: 97110; 97161 ==

== ENCOUNTER → 2023-09-20 08:10 | Outpatient (BNVA) | payer OTHER, SELFPAY | PROVIDERS: PCP Family Medicine; Visit Provider Family Medicine Adult Medicine | DX: U09.9 Post COVID-19 condition, unspecified (principal); F31.63 Bipolar disorder, current episode mixed, severe, without psychotic features; J30.1 Allergic rhinitis due to pollen; J04.0 Acute laryngitis | CPT/HCPCS: 87426 ==

== ENCOUNTER → 2023-10-12 13:59 | Outpatient (BNVA) | payer OTHER, SELFPAY | PROVIDERS: PCP Family Medicine; Visit Provider Emergency Medicine | DX: R39.9 Unspecified symptoms and signs involving the genitourinary system (principal) | CPT/HCPCS: 81000; 87077; 87086; 87184 ==

== ENCOUNTER → 2024-06-05 12:43 | Outpatient (BNVA) | payer OTHER, SELFPAY | PROVIDERS: PCP Family Medicine | DX: J02.9 Acute pharyngitis, unspecified (principal); J06.9 Acute upper respiratory infection, unspecified | CPT/HCPCS: 87880 ==

== ENCOUNTER → 2024-10-06 14:27 | Outpatient (BNVA) | payer MEDICAID, SELFPAY | PROVIDERS: PCP Family Medicine; Visit Provider Specialist | DX: M17.0 Bilateral primary osteoarthritis of knee (principal) | CPT/HCPCS: 73560; 73565 ==

== ENCOUNTER → 2024-12-22 08:39 | Outpatient (BNVA) | payer MEDICAID, SELFPAY | PROVIDERS: PCP Nurse Practitioner Adult Health; Visit Provider Specialist | DX: M17.0 Bilateral primary osteoarthritis of knee (principal); Z46.89 Encounter for fitting and adjustment of other specified devices | CPT/HCPCS: 73560; 73565 ==

== ENCOUNTER 2025-01-13 13:55 | Outpatient (CLI) | payer MEDICAID, SELFPAY ==
--- NOTE | 2025-01-13 14:12 | CT_ITS ---
WS: [id number] CT RIGHT KNEE, NONCONTRAST TECHNIQUE: Noncontrast CT of the RIGHT knee to include the RIGHT hip and ankle. [facility] CLINICAL INFORMATION: M17.11 - Unilateral primary osteoarthritis, right knee COMPARISON: None. DLP: 930.[address] scans at [facility] use at least one of these dose optimization techniques: automated exposure control; mA and/or kV adjustment per patient size (includes targeted exams where dose is matched to clinical indication); or iterative reconstruction. FINDINGS: Partially visualized degenerative arthritis sacroiliac joints. Sigmoid diverticulosis. Advanced tricompartmental arthritis RIGHT knee. Hypertrophic changes along the joint line. Hypertrophic patella. Slight lateral subluxation of the patella. Prepatellar and infrapatellar soft tissue edema. CT/CT knee RT [facility] [id number] IMPRESSION: Images obtained for preoperative purposes.
[2025-01-13 15:06] LABS: Estmated Average Glucose 103; Hemoglobin A1C 5.2 % (4.0-6.0)
[2025-01-13 15:07] LABS: Cholesterol 194 mg/dL (0-200); HDL Cholesterol 59 mg/dL (60-100); Triglycerides 247 mg/dL (0-150)
== END 2025-01-13 13:56 | disposition home or self-care (01) ==
PROVIDERS: Nurse Practitioner Psychiatric/Mental Health; PCP Nurse Practitioner Adult Health; Visit Provider Specialist
DX: M17.11 Unilateral primary osteoarthritis, right knee (principal); Z79.899 Other long term (current) drug therapy
CPT/HCPCS: 36415; 73700; 80061; 83036

== ENCOUNTER → 2025-03-11 11:05 | Outpatient (BNVA) | payer MEDICAID, SELFPAY | PROVIDERS: PCP Nurse Practitioner Adult Health; Visit Provider Nurse Practitioner Women's Health | DX: R53.83 Other fatigue (principal); Z01.419 Encounter for gynecological examination (general) (routine) without abnormal findings | CPT/HCPCS: 82306; 84443 ==

== ENCOUNTER 2025-03-13 10:55 | Outpatient (CLI) | payer MEDICAID, SELFPAY ==
--- NOTE | 2025-03-13 11:20 | MM_ITS ---
WS: [id number] BILATERAL 3D TOMOSYNTHESIS DIGITAL SCREENING MAMMOGRAPHY WITH CAD CLINICAL INFORMATION: Z12.39 - Encounter for other screening for malignant neop... HISTORY: Screening mammogram. No current complaints. COMPARISON: 2020 TECHNIQUE: Bilateral CC and MLO views. FINDINGS: The breasts are composed of heterogeneous fibroglandular density tissue, which can limit the detection of small underlying mass lesions. No suspicious mass, asymmetry, calcifications, or architectural distortion. No evidence of malignancy. A few incidental punctate calcifications. Stable partially obscured nodules upper outer LEFT breast stable since 2013. MM/MM [facility] tomosynthesis [id number] IMPRESSION: DENSITY: The breasts are heterogeneously dense, which may obscure small masses. BI-RADS: 2 - Benign FOLLOW UP: 1 Year Follow-up Recommend return to annual screening mammography.
== END 2025-03-13 10:56 | disposition home or self-care (01) ==
PROVIDERS: PCP Nurse Practitioner Adult Health; Visit Provider Nurse Practitioner Women's Health
DX: Z12.31 Encounter for screening mammogram for malignant neoplasm of breast (principal); R92.333 Mammographic heterogeneous density, bilateral breasts; R92.323 Mammographic fibroglandular density, bilateral breasts; R92.1 Mammographic calcification found on diagnostic imaging of breast; N63.21 Unspecified lump in the left breast, upper outer quadrant
CPT/HCPCS: 77063; 77067

== ENCOUNTER → 2025-03-31 17:07 | Outpatient (BNVA) | payer MEDICAID, SELFPAY | PROVIDERS: PCP Nurse Practitioner Adult Health | DX: Z11.3 Encounter for screening for infections with a predominantly sexual mode of transmission (principal) | CPT/HCPCS: 81513; 87481; 87491; 87591; 87661 ==

== ENCOUNTER → 2025-05-16 15:21 | Outpatient (BNVA) | payer MEDICAID, SELFPAY | PROVIDERS: PCP Nurse Practitioner Adult Health; Visit Provider Emergency Medicine | DX: Z20.2 Contact with and (suspected) exposure to infections with a predominantly sexual mode of transmission (principal) | CPT/HCPCS: 81513; 87481; 87491; 87591; 87661 ==

== ENCOUNTER → 2025-06-01 14:17 | Outpatient (BNVA) | payer MEDICAID, SELFPAY | PROVIDERS: PCP Nurse Practitioner Adult Health; Visit Provider Nurse Practitioner | DX: R53.83 Other fatigue (principal) | CPT/HCPCS: 87400; 87426 ==

== ENCOUNTER 2025-06-05 12:39 | Emergency (ER) | payer MEDICAID, SELFPAY ==
--- NOTE | 2025-06-05 12:40 | ECG_ITS ---
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
--- NOTE | 2025-06-05 12:40 | XR_ITS ---
WS: [id number] Portable AP upright chest, 06/05/2025 Clinical Data: dyspnea/cough Comparison: Portable chest, 06/15/2023 Findings: No nodules, masses or effusions are seen. The heart is normal. The pulmonary vascularity is not increased. No pneumonia or pneumothorax is seen. XR/XR chest 1V portable [id number] Impression: Negative chest.
[2025-06-05 12:41] VITALS: BP 154/90; PULSE 73; RESP 20; TEMP 36.4; O2SAT 99; BMI 36.3
--- OUTSIDE RECORDS SUMMARY | 2025-06-05 12:46 | XMS_ITS | Clinical Summary ---
Author Organization [employer] Address [address] [facility] Attn: Epic Prelude ADT BRICE MILLER [address] Care Team Providers Care Signaling Design Engineer Name Role Phone Bandar De La Fuente MD Primary Care Provider [phone] Allergies Active Allergy Reactions Criticality Noted Date Comments Adhesive Tape-Silicones Rash Low 04/15/2014 Cephalexin Rash,Itching Low 12/31/2018 Erythromycin Rash Low 04/15/2014 Neosporin (Neomycin-Polymyx) Rash Low 024 Sulfa (Sulfonamide Antibiotics) Rash Low 03/19 Medications lamoTRIgine (LaMICtal) 200 mg tablet Take 225 mg by mouth 2 times daily. 9 Active ARIPiprazole (ABILIFY) 15 mg tablet Take 15 mg by mouth daily at bedtime. 0 Active Nebulizer Accessories KitIndications:M ild intermittent asthma with acute exacerbation Nebulizer treatment every 4-6 hours as needed for SOB/wheezing 1 Kit 1 0 Active Additional Information Patient not taking.Reported on 03/04/2025 Nebulizer & Compressor For Neb DeviceIndication s:Mild intermittent asthma with acute exacerbation Nebulizer treatment every 4-6 hours as needed for SOB/wheezing 1 Each 0 0 Active Additional Information Patient not taking.Reported on 03/04/2025 traZODone (DESYREL) 50 mg tablet Take 200 mg by mouth daily at bedtime. 9 Active buPROPion HCL (WELLBUTRIN SR) 150 mg Sustained Release 12 hour tablet Take 150 mg by mouth daily. 0 Active Cetirizine 10 mg Capsule Take 10 mg by mouth. Active buPROPion HCL (WELLBUTRIN XL) 300 mg Extended Release 24 hour tablet Take 300 mg by mouth daily in the morning. Active MELOXICAM ORAL Take by mouth daily. Active omeprazole (PriLOSEC) 20 mg Capsule, Delayed Release(E.C.) 1 tablet 30 minutes before morning meal Orally twice daily Active valACYclovir (VALTREX) 500 mg tabletIndication s:Herpes infection Take 1 Tablet (500 mg) by mouth 2 times daily. 60 Tablet Active fluconazole (DIFLUCAN) 150 mg tabletIndication s:Yeast infection Take 1 Tablet (150 mg) by mouth daily. 1 Tablet 1 Active Active Problems Problem Noted Date Diagnosed Date Bipolar disorder, unspecified 02/17/2025 Paresthesia of skin 02/17/2025 Weakness 02/17/2025 Gastro-esophageal reflux disease with esophagiti s 02/17/2025 Insomnia 02/17/2025 Pain in unspecified knee 02/17/2025 Generalized hyperhidrosis 02/17/2025 Nicotine dependence, unspecified, uncomplicated 02/17/2025 Dizziness and giddiness 02/17/2025 Syncope and collapse 07/12/2024 Overview (02/17/2025): Onset Date: 20240710 Acute cystitis with hematuria 05/25/2024 Elevated blood pressure read ing without diagnosis of hypertension 03/31/2024 Suspected severe acute respi ratory syndrome coronavirus 2 (SARS-CoV-2) infection 02/07/2024 Overview (02/17/2025): Onset Date: 20240206 Sinusitis 02/06/2024 Overview (02/17/2025): Onset Date: 20240206 Fall from slipping on ice 07/10/2023 Pain of left hip 07/10/2023 Family history of colon cancer 07/30/2018 Hx of gastric ulcer 07/30/2018 Depression, major, recurrent, mild 04/15/2014 Bipolar depression 04/15/2014 Environmental allergies 04/15/2014 Genital HSV 04/15/2014 Arthritis of sacroiliac joint 04/15/2014 Encounters Date Type Department Care Team Description 05/19/2025 External Device Data ST[facility] ABSTRACTION Provider, Abstract 05/19/2025 External Device Data ST[facility] ABSTRACTION Provider, Abstract 05/19/2025 External Device Data ST[facility] ABSTRACTION Provider, Abstract 04/21/2025 External Device Data ST[facility] ABSTRACTION Provider, Abstract 04/21/2025 External Device Data [facility] ABSTRACTION Provider, Abstract 04/21/2025 External Device Data STL ABSTRACTION Provider, Abstract 04/17/2025 11:04 AM CDT - 04/17/2025 11:59 AM CDT [facility] [address] [facility] [address] [place] [id number] Cayetano Parsons MD Back muscle spasm (Primary Dx) Discharge Disposition: Home or Self Care 04/17/2025 Travel 04/15/2025 External Device Data ST[facility] ABSTRACTION Provider, Abstract 04/15/2025 External Device Data STL ABSTRACTION Provider, Abstract 03/24/2025 External Device Data ST[facility] ABSTRACTION Provider, Abstract 03/24/2025 External Device Data STL ABSTRACTION Provider, Abstract 03/24/2025 External Device Data STL ABSTRACTION Provider, Abstract 03/06/2025 10:35 AM CDT Procedure visit [facility] [place] [address] [facility] [address] [place] [id number] Gonorrhea (Primary Dx) from Last 3 Months Immunizations Immunization Administration Dates Next Due (SPIKEVAX) (12 YRS UP PRIMAR Y SERIES) COVID-19 VACCINE - MRNA-1273(PF) 100 MCG/0.5 ML IM SUSP 12/13/2020 INFLUENZA VACCINE TRIVALENT SPLIT VIRUS, (6 MOS UP), 0.5ML (PF), IM 03/04/2025 Influenza Seasonal Unspecified Formulation IM Family History Medical History Relation Name Comments Heart Disease Brother Hypertension Brother Other Brother Other Father Heart Disease Mother Other Mother Other Sister 1 Other Sister 2 Hypertension Sister 3 Other Sister 3 Other Sister 4 Other Son 1 Other Son 2 Relation Name Status Comments Brother Alive Father Maternal Grandfather Maternal Grandmother Mother Alive Paternal Grandfather Paternal Grandmother Sister 1 Alive Sister 2 Alive Sister 3 Alive Sister 4 Alive Son 1 Alive Son 2 Alive Social History Tobacco Use Types Packs/Day Years Used Date Smoking Tobacco: Former Cigarettes Smokeless Tobacco: Never Tobacco Cessation:Counseling Given: Not Answered Alcohol Use Standard Drinks/Week Comments Yes 0 (1 standard drink = 0.6 oz pur e alcohol) occasionally Food Insecurity Answer Date Recorded Do you find you are eating l ess than you should because you can t pay for food? No 04/17/2025 Transportation Needs Answer Date Record ed Have you gone without health care because you didn t have a way to get there? Or worry about transportation for future doctor visits, chicken picker medication, etc.? No 2024 Housing Stability Answer Date Recorded Do you worry you won t have a steady place to sleep or struggle to pay rent or mortgage? No 04/17/2025 Utility Needs Answer Date Recorded Do you have difficulty payin g for utility costs (electric, water or gas bills)? No 04/17/2025 Medication Needs Answer Date Recorded Have you skipped taking medi cation due to cost or worry you can t afford new medications? No 04/17/2025 Feeling Safe Answer Date Recorded Are you in a relationship wi th someone who hurts you emotionally and/or physically? 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 Gender Identity Not on file Sexual Orientation Not on file Last Filed Vital Signs Vital Sign Reading Time Taken Comments Blood Pressure 122/84 04/17/2025 11:45 AM CDT Pulse 99 04/17/2025 11:45 AM CDT Temperature 36.1 C (97 F) 04/17/2025 11:08 AM CDT Respiratory Rate 18 04/17/2025 11:45 AM CDT Oxygen Saturation 98% 04/17/2025 11:45 AM CDT Inhaled Oxygen Concentration - - Weight 102 kg (224 lb 12.8 oz) 04/17/2025 11:08 AM CDT Height 165.1 cm (5' 5 ) 04/17/2025 11:08 AM CDT Body Mass Index 37.41 04/17/2025 11:08 AM CDT Plan of Treatment Health Maintenance Due Date Last Done Comments DTAP/TDAP/TD VACCINES (1 - Tdap) 1990 HEPATITIS B VACCINES (1 of 3 - 19+ 3-dose series) 1990 HPV/Cotest (21-29) 1992 CERVICAL CANCER SCREENING 2001 HPV/Cotest (30-65) 2001 PAP SMEAR 2001 COLORECTAL SCREENING 2016 Colorectal Cancer Screening 2016 FIT-DNA Q 3 years 2016 FIT/FOBT Q 1 year 2016 Flex Sig/CT Colonography Q 5 years 2016 Preventative Visit-Managed Medicaid 07/31/2019 07/30/2018 BREAST CANCER SCREENING 02/08/2021 02/09/20 20, 02/09/2020, 08/20/2018, Additional history exists ZOSTER VACCINE (1 of 2) 2021 Pre-Diabetes and Diabetes Screening 09/11/2023 09/10/2020, 07/03/2016, 01/11/2015, Additional history exists COVID-19 Vaccine (2024-2 6 season) 2025 12/13/2020, 11/09/2020 INFLUENZA VACCINE Completed 03/04/2025, , 03/02/2019 Procedures Procedure Name Priority Date/Time Associated Diagnosis Comments HEMOGLOBIN A1C Routine 09/10/2020 MAMMO DIAGNOSTIC BILATERAL W OR WO CAD Routine 02/09/2020 12:00 AM CDT Pain of both breasts from Last 3 Months or Most Recently Relevant to Health Maintenance Results * HEMOGLOBIN A1C (09/10/2020) ABSTRACTED HGB A1C 4.6 [facility] ^ [facility] HEMOGLOBIN A1C [facility] GLUCOSE, MEAN BLOOD [facility] Blood 09/10/2020 Narrative [facility] - 09/10/2020 12:00 AM CDT This order was created through External Result Entry us Abstract Spg Provider CHEMISTRY ORDERABLES Final Result [facility] * MAMMO DIAGNOSTIC BILATERAL W OR WO CAD (02/09/2020 12:00 AM CDT) Anatomical Region Laterality Modality Breast Bilateral Other Didi Waters Kelvin ASIC ENGINEER MAMMO ORDERABLES Final R esult from Last 3 Months or Most Recently Relevant to Health Maintenance Insurance [facility] [id number] Care Teams Signaling Design Engineer Relationship Specialty Start Date End Date Bandar De La Fuente MD [address] [phone] PCP - General Family Practice 01/16/25
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
[2025-06-05 13:04] LABS: Hematocrit 45.3 % (36-47); Hemoglobin 15.00 g/dL (11.27-16.99); Mean Corpuscular HGB Conc 33.1 g/dL (30-55); Mean Corpuscular Hemoglobin 30.8 pg (27-33); Mean Corpuscular Volume 93.0 fl (85-98); Nucleated Red Blood Cells % 0 %; Platelet Count 297 10^3/cmm (157-399); Red Blood Count 4.87 10^6/uL (3.85-5.65); White Blood Count 6.85 10^3/uL (3.29-11.43)
--- NOTE | 2025-06-05 13:11 | ED_ITS ---
HPI - Weakness 2 General: Chief complaint: Weakness Stated complaint: sob syncope Time Seen by Provider: 06/05/25 12:40 History of Present Illness: 54-year-old female presents to the emerg ency room via ambulance from her home. She had a syncopal episode at home and generalized has been weak she has had wheezing. She has had upper respiratory symptoms began over the last couple of days she has had progressively more short of breath. EMS reported that she had significant tachypnea on arrival respiratory rate in the 40s. She did improve significantly with DuoNeb and route. Associated symptoms: Denies chest pain, chills, dysuria or fever(s) Related Data Previous Rx's ?Medication ?Instructions ?Recorded omeprazole 20 mg tablet,delayed 20 mg PO .morning #90 tabs 07/31/23 release hinged knee brace, bilateral #1 ea 12/22/24 meloxicam 15 mg tablet 15 mg PO DAILY #60 tabs 12/16 10/10 valacyclovir 500 mg tablet 500 mg PO BID #90 tabs 02/17 10/10 aripiprazole 30 mg tablet (Abilify) 30 mg PO BEDTIME # 30 tabs 04/07/25 bupropion HCl 150 mg 24 hr tablet, 150 mg PO QAM #30 t abs 04/07/25 extended release bupropion HCl 300 mg 24 hr tablet, 300 mg PO QAM #30 t abs 04/07/25 extended release (Wellbutrin XL) lamotrigine 200 mg tablet 200 mg PO BID #60 tabs 04/07 (Lamictal) lamotrigine 25 mg tablet (Lamictal) 25 mg PO BID #60 t abs 04/07/25 trazodone 150 mg tablet 150 mg PO BEDTIME PRN sleep #60 04/07/25 tabs estradiol 2 mg tablet 2 mg PO DAILY #90 tabs 04/22 azithromycin 500 mg tablet 1,000 mg (2 x 500 mg) PO ON CE #2 05/16/25 (Zithromax) tabs metronidazole 500 mg tablet 2,000 mg (4 x 500 mg) PO O NCE #4 05/16/25 tabs ondansetron 8 mg disintegrating 8 mg PO Q8H PRN nausea and 05/16/25 tablet vomiting 5 days #15 tabs metronidazole 500 mg tablet 500 mg PO BID 7 days #14 t abs 05/20/25 albuterol sulfate 90 mcg/actuation 2 puff inhalation Q 4H PRN 06/01/25 aerosol inhaler (Ventolin HFA) shortness of breath or wheezing #8.5 grams hydroxyzine HCl 25 mg tablet 25 mg PO Q6H PRN anxiety #10 tabs 06/05/25 Allergies Allergy/AdvReac Type Severity Reaction Status Date / Time bacitracin (From Neosporin Allergy rash Verified 06/05/25 12:46 ([id number])) erythromycin base (From Allergy rash Verified 06/05/25 12:46 Erythrocin) neomycin (From Neosporin Allergy rash Verified 06/05/25 12:46 ([id number])) petrolatum,hydrophilic Allergy rash Verified 06/05/25 12:46 Sulfa (Sulfonamide Allergy Nausea, Verified 06/05/25 12:46 Antibiotics) rash Review of Systems 2 Const: Denies: fever(s) or chills Card: Denies: chest pain Resp: Denies: dyspnea GI: Denies: abdominal pain : Denies: dysuria, urinary frequency or urinary urgency Musc: Denies: neck pain or back pain Skin/Breast: Denies: rash PFSH ED 2 PFSH: Medical History [facility] Psychiatric care Bilateral primary osteoarthritis of knee Chronic post-traumatic stress disorder Bipolar I disorder, most recent episode mixed, severe without psychotic features Urinary incontinence, mixed History of cervical cancer Status post hysteroscopy Recurrent UTI Surgical History History of hysterectomy History of salpingectomy H/O dilation and curettage S/P section S/P tonsillectomy Family History Family/Other Cancer Psychiatric illness Bipolar CAD (coronary artery disease) Diabetes Social History Smoking and tobacco/nicotine status: tobacco/nicotine user, details unknown Alcohol intake: never Substance/Drug Use: never Marital status: Current occupational status: employed Female Reproductive History: Para: 2 Spontaneous abortions: Yes Physical Exam 2 Const: COMMON NORMALS: no acute distress GENERAL APPEARANCE: cooperative and comfortable ORIENTATION/CONSCIOUSNESS: Yes awake, Yes oriented to person, Yes oriented to place and Yes oriented to time HENMT: COMMON NORMALS: normocephalic, atraumatic and hearing grossly normal bilaterally HEAD & SCALP: normocephalic and atraumatic Resp: COMMON NORMALS: normal respiratory effort, No retractions, No use of accessory muscles and clear to auscultation bilaterally AUSCULTATION: clear to auscultation bilaterally Cardio: COMMON NORMALS: regular rate, regular rhythm and No murmurs present (Cardio) RATE: regular rate RHYTHM: regular rhythm GI: COMMON NORMALS: Soft to palpation and No hepatosplenomegaly present A USCULTATION: Yes normoactive bowel sounds PALPATION: Yes Soft to palpation, No Tenderness to palpation present (GI), No Guarding due to palpation present (GI) and Yes No hepatosplenomegaly present Extremity: COMMON NORMALS: normal to inspection, capillary refill normal, no clubbing, cyanosis or edema, no calf tenderness and no pedal edema Neuro: SENSORIUM/ORIENTATION: Yes oriented to person, Yes oriented to place and Yes oriented to time Skin: COMMON NORMALS: no rashes or lesions noted GENERAL SKIN EXAM: no rashes or lesions noted Course 2 Vital Signs: Vital signs: Vital Signs Temperature 97.5 F L 06/05/25 12:41 Pulse Rate 82 06/05/25 15:29 Respiratory Rate 20 H 06/05/25 13:23 Blood Pressure 143/68 06/05/25 15:29 Pulse Oximetry 92 06/05/25 15:29 Oxygen Delivery Me thod Room Air 06/05/25 14:24 MDM - Weakness Medical Decision Making Medical decision making Social determinants: None I reviewed the patient's medical record. I reviewed the patient's current home meds. Alternate historians: None Differential diagnosis: Syncope, hyperventilation, pneumonia, acute coronary syndrome Lab Review: CBC is unremarkable. Blood gas shows hyperventilation with a pCO2 of 22.8 and pH is 7.58. Chemistry shows normal electrolytes normal liver functions troponins below detectable limits no significant delta Imaging:Chest x-ray unremarkable mild hyperinflation no cardiomegaly no infiltrates or effusions no pneumothorax no widening of the mediastinum Assessment of risk Level of risk: Low to moderate Hospitalization considerations: Evaluation for syncope may require hospitalization pending findings Reexamination: Symptoms have all completely resolved. Assessment and plan: Syncopal episode while at home 1 of patient's main complaint is a sensation that she could not breathe her oxygen saturation was normal time blood gas shows hyperventilation her symptoms have resolved she is feeling much better will discharge her home have her follow-up with primary care reviewed findings and diagnosis. Answered patient questions. Patient agreeable with plan Lab Data 06/05/25 12:56 06/05/25 12:56 Radiology Impressions Chest X-Ray 06/05/25 12:40 Impression: Negative chest. Laboratory Results WBC 6.85 10^3/uL (3.29-11.43) 06/05/25 12:56 RBC 4.87 10^6/uL (3.85-5.65) 06/05/25 12:56 Hgb 15.00 g/dL (11.27-16.99) 06/05/25 12:56 Hct 45.3 % (36-47) 06/05/25 12:56 MCV 93.0 fl (85-98) 06/05/25 12:56 MCH 30.8 pg (27-33) 06/05/25 12:56 MCHC 33.1 g/dL (30-55) 06/05/25 12:56 RDW 12.7 % (12.1-15.1) 06/05/25 12:56 Plt Count 297 10^3/cmm (157-399) 06/05/25 12:56 MPV 9.1 fL (7.4-10.4) 06/05/25 12:56 Neut % (Auto) 58.0 % 06/05/25 12:56 Lymph % (Auto) 35.2 % 06/05/25 12:56 [place] % (Auto) 5.1 % 06/05/25 12:56 Eos % (Auto) 1.0 % 06/05/25 12:56 Baso % (Auto) 0.4 % 06/05/25 12:56 Neut # (Auto) 3.97 10^3/uL (1.8-7.7) 06/05/25 12:56 Lymph # (Auto) 2.4 10^3/uL (0.8-4.8) 06/05/25 12:56 [place] # (Auto) 0.4 10^3/uL (0.2-0.9) 06/05/25 12:56 Eos # (Auto) 0.1 10^3/uL (0.0-0.8) 06/05/25 12:56 Baso # (Auto) 0.0 10^3/uL (0.0-0.1) 06/05/25 12:56 Nucleated RBC % (auto) 0 % 06/05/25 12:56 Nucleated RBCs # 0.0 /100WBC 06/05/25 12:56 Specimen Type Arterial 06/05/25 13:29 Sample Site Radial, right 06/05/25 13:29 ABG pH 7.58 (7.35-7.45) H* 06/05/25 13:29 ABG pCO2 22.8 mmHg (35-45) L 06/05/25 13:29 ABG pO2 100.0 mmHg (80.0-100.0) 06/05/25 13:29 ABG PO2/FiO2 Ratio 476 06/05/25 13:29 ABG HCO3 21.2 mmol/L (22-26) L 06/05/25 13:29 ABG O2 Saturation 97.8 06/05/25 13:29 ABG Base Excess 1.2 mmol/L (-2.0-2.0) 06/05/25 13:29 Alejandro Test Pos 06/05/25 13:29 A-a O2 Gradient 2.5 mmHg (5-10) L 06/05/25 13:29 Hematocrit 47.4 % (37-47) H 06/05/25 13:29 Hgb O2 Saturation 97.9 % (95-100) 06/05/25 13:29 Carboxyhemoglobin < 0.3 %THgb (0.4-20.1) L 06/05/25 13:29 Methemoglobin < 0.0 % (0.4-1.5) L 06/05/25 13:29 Total Hemoglobin 15.5 g/dL (12-16) 06/05/25 13:29 Sodium 142.0 mmol/L (131-143) 06/05/25 13:29 Potassium 3.1 mmol/L (3.5-5.0) L 06/05/25 13:29 Glucose 115.0 mg/dL (70-115) 06/05/25 13:29 Ionized Calcium 1.1 mmol/L (1.1-1.4) 06/05/25 13:29 O2 Delivery Device Room air 06/05/25 13:29 FiO2 21.0 % 06/05/25 13:29 Train Operations Supervisor ID [id number] 06/05/25 13:29 Sodium 139 mmol/L (136-145) 06/05/25 12:56 Potassium 3.6 mmol/L (3.5-5.1) 06/05/25 12:56 Chloride 101 mmol/L (98-107) 06/05/25 12:56 Carbon Dioxide 23 mmol/L (22-29) 06/05/25 12:56 Anion Gap 18.6 (5-19) 06/05/25 12:56 BUN 7 mg/dL (6-20) 06/05/25 12:56 Creatinine 0.7 mg/dL (0.5-0.9) 06/05/25 12:56 GFR Calculation 87.5 mL/min (90-130) L 06/05/25 12:56 Glucose 106 mg/dL (65-115) 06/05/25 12:56 Calculated Osmolality 286 mOsm/kg (285-295) 06/05/25 12:56 Calcium 8.8 mg/dL (8.5-10.5) 06/05/25 12:56 Total Bilirubin 0.5 mg/dL (0.15-1.2) 06/05/25 12:56 AST 14 U/L (0-32) 06/05/25 12:56 ALT 11 U/L (0-33) 06/05/25 12:56 Alkaline Phosphatase 81 U/L (35-105) 06/05/25 12:56 Troponin T Baseline < 6 ng/L (0-10) 06/05/25 12:56 Troponin T 60 Minute < 6.0 ng/L (0-10) 06/05/25 13:55 Delta Troponin T 0 ABS# (0-10) 06/05/25 13:55 Total Protein 6.7 g/dL (6.6-8.7) 06/05/25 12:56 Albumin 4.0 g/dL (3.5-5.2) 06/05/25 12:56 Globulin 2.7 g/dL (1.3-4.6) 06/05/25 12:56 Urine Color Yellow (Yellow) 06/05/25 13:15 Urine Appearance Clear (CLEAR) 06/05/25 13:15 Urine pH 7.5 (5-7) 06/05/25 13:15 Ur Specific [place] 1.018 (1.005-1.030) 06/05/25 13:15 Urine Protein Negative (Negative) 06/05/25 13:15 Urine Glucose (UA) Negative (Normal) 06/05/25 13:15 Urine Ketones 1+ (Negative) H 06/05/25 13:15 Urine Blood Negative (Negative) 06/05/25 13:15 Urine Nitrate Negative (Negative) 06/05/25 13:15 Urine Bilirubin Negative (Negative) 06/05/25 13:15 Urine Urobilinogen 0.2 mg/dL (Negative) 06/05/25 13:15 Ur Leukocyte Esterase Negative (Negative) 06/05/25 13:15 Urine RBC 0-2 /hpf (0-2) 06/05/25 13:15 Urine WBC 0-5 /hpf (0-5) 06/05/25 13:15 Ur Squamous Epith Cells 0-5 /hpf (0-5) 06/05/25 13:15 Amorphous Sediment Not Reportable 06/05/25 13:15 Urine Bacteria None seen /hpf (NONE) 06/05/25 13:15 Hyaline Casts 1.21 /lpf 06/05/25 13:15 All radiology interpretation(s) finalized by discharge EKG Data EKG 1: I personally reviewed and interpreted this EKG as follows: Interpretation: EKG 06/05/2025 [address] changes no acute ST elevation or depression rate of 64 ID interval 128 QTc 435. Compared to EKG 06/15/2023 no acute changes EKG 2: I personally reviewed and interpreted this EKG as follows: Interpretation: EKG 06/05/2025 1346 sinus rhythm rate of 66. Williamson 129 QTc 442 compared EKG done earlier today no significant changes. No acute ST elevation. Discharge Plan Discharge Patient Disposition: Home Clinical Impression: Syncope, Hyperventilation Condition: Stable Prescriptions: New hydroxyzine HCl 25 mg tablet 25 mg PO Q6H PRN (Reason: anxiety) Qty: 10 0RF No Action (DME) hinged knee brace, bilateral See Rx Instructions .Route .MEDSUPPLY Qty: 1 0RF Rx Instructions: As directed albuterol sulfate [Ventolin HFA] 90 mcg/actuation HFA aerosol inhaler 2 puff inhalation Q4H PRN (Reason: shortness of breath or wheezing) Qty: 8.5 0RF omeprazole 20 mg tablet,delayed release (DR/EC) 20 mg PO .morning Qty: 90 2RF Rx Instructions: Take one tablet every morning valacyclovir 500 mg tablet 500 mg PO BID Qty: 90 3RF Rx Instructions: take 1 tab twice daily for 3-5 days during outbreak metronidazole 500 mg tablet 2,000 mg PO ONCE Qty: 4 0RF ondansetron 8 mg tablet,disintegrating 8 mg PO Q8H PRN (Reason: nausea and vomiting) 5 Days Qty: 15 0RF azithromycin [Zithromax] 500 mg tablet 1,000 mg PO ONCE Qty: 2 0RF meloxicam 15 mg tablet 15 mg PO DAILY Qty: 60 2RF aripiprazole [Abilify] 30 mg tablet 30 mg PO BEDTIME Qty: 30 6RF Rx Instructions: Take one tablet at bedtime bupropion HCl 150 mg tablet extended release 24 hr 150 mg PO QAM Qty: 30 4RF Rx Instructions: Take one tablet every morning bupropion HCl [Wellbutrin XL] 300 mg tablet extended release 24 hr 300 mg PO QAM Qty: 30 4RF Rx Instructions: Take one tablet every morning lamotrigine [Lamictal] 25 mg tablet 25 mg PO BID Qty: 60 4RF Rx Instructions: Take one tablet twice per day with 200 mg tablet, total dose 225 mg twice per day lamotrigine [Lamictal] 200 mg tablet 200 mg PO BID Qty: 60 4RF Rx Instructions: Take one tablet with 25 mg tablet twice per day, total dose 225 mg twice per day trazodone 150 mg tablet 150 mg PO BEDTIME PRN (Reason: sleep) Qty: 60 4RF Rx Instructions: May take one to two tablets at bedtime as needed for sleep estradiol 2 mg tablet 2 mg PO DAILY Qty: 90 1RF metronidazole 500 mg tablet 500 mg PO BID 7 Days Qty: 14 0RF Discharge Orders: Discharge ED (Routine); Ordered 06/05/25 Ordered By: Pedro Petty Referrals: Giovanna Ardon [Primary Care Provider] Discharge Diet: Usual diet Discharge Activity: Increase activity as tolerated Patient Instructions: Opioid Safety, Pain Management, Patient Portal & Ana Instructions Activity Restrictions/Additional Instructions: [facility]. It is very important that you follow up as instructed or that you return to the Emergency Department should you have concerns or if your condition changes or worsens in any way. Emergency department visits are focused on emergent conditions, in some cases you may require further evaluation on an outpatient basis. You were seen in the emergency room with complaints difficulty breathing. Your noted to be hyperventilating when you arrived your chest x-ray is normal your other labs were unremarkable. Your symptoms resolved while you are in the emergency room. Will discharge you home give hydroxyzine to use as needed for anxiety and follow-up with your primary care doctor as needed (Please note that included in your discharge packet is information concerning opoid safety and pain management. 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
[2025-06-05] MEDS: methylPREDNISolone sod succ 125 mg/2 mL INJ IVP (13:18)
[2025-06-05 13:23] VITALS: PULSE 75; RESP 20; O2SAT 97
[2025-06-05 13:28] LABS: Troponin(5th) Baseline < 6 ng/L (0-10)
[2025-06-05 13:30] LABS: Glucose Urine UA Negative (Normal); Nitrate Urine Negative (Negative); Specific Gravity, Urine 1.018 (1.005-1.030)
[2025-06-05 13:33] LABS: Alanine Aminotransferase 11 U/L (0-33); Albumin Level 4.0 g/dL (3.5-5.2); Alkaline Phosphatase 81 U/L (35-105); Anion Gap 18.6 (5-19); Aspartate Amino Transferase 14 U/L (0-32); Blood Urea Nitrogen 7 mg/dL (6-20); Calcium 8.8 mg/dL (8.5-10.5); Carbon Dioxide 23 mmol/L (22-29); Chloride 101 mmol/L (98-107); Globulin 2.7 g/dL (1.3-4.6); Glucose 106 mg/dL (65-115); Osmolality Calculated 286 mOsm/kg (285-295); Potassium 3.6 mmol/L (3.5-5.1); Sodium 139 mmol/L (136-145); Total Protein 6.7 g/dL (6.6-8.7)
[2025-06-05 13:35] LABS: Add Urine Microscopic? YES
--- NOTE | 2025-06-05 13:40 | ECG_ITS ---
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
[2025-06-05 13:41] LABS: ABG PCO2 22.8 mmHg (35-45); Alveolar-Arterial Oxygen Gradi 2.5 mmHg (5-10); Arterial Blood Gas Hematocrit 47.4 % (37-47); Blood Gas Allen Test Pos; Blood Gas Operator Identificat glc; Blood Gas Sample Site Radial, right; Blood Gas Sample Type Arterial; Carboxyhemoglobin < 0.3 %THgb (0.4-20.1); Glucose Level-ABG 115.0 mg/dL (70-115); HCO3 ABG 21.2 mmol/L (22-26); Ionized Calcium Level - ABG 1.1 mmol/L (1.1-1.4); Methemoglobin < 0.0 % (0.4-1.5); Oxygen Saturation ABG 97.8; PO2 ABG 100.0 mmHg (80.0-100.0); PO2 FiO2 Ratio Arterial Blood 476; Potassium Level - ABG 3.1 mmol/L (3.5-5.0); Sodium Level - ABG 142.0 mmol/L (131-143)
[2025-06-05 13:45] LABS: ABG PH Result 7.58 (7.35-7.45)
[2025-06-05 14:24] VITALS: BP 147/79; PULSE 82; O2SAT 95
[2025-06-05 15:29] VITALS: BP 143/68; PULSE 82; O2SAT 92
== END 2025-06-05 15:35 | disposition home or self-care (01) ==
PROVIDERS: Emergency Provider Family Medicine; PCP Nurse Practitioner Adult Health
DX: R55 Syncope and collapse (principal); R06.4 Hyperventilation
CPT/HCPCS: 36415; 36600; 71045; 80051; 80053; 81001; 82330; 82805; 84484; 85025; 93005; 94640; 96374; 99285; J2919; J9999